=== PATIENT | male | born 1945 | race Caucasian/White ===

== ENCOUNTER → 2016-11-07 | Outpatient (CLI) | payer MEDICARE ==
[2016-11-07 09:26] LABS: BASO % 0.9 % (0.0-1.0); EOS # 0.1 K/mm3 (0.0-0.50); EOS % 2.4 % (0.0-3.0); LARGE UNSTAINED CELL # 0.2 K/mm3 (0.0-0.4); LARGE UNSTAINED CELL % 2.6 % (0.0-4.0); LYMPH # 1.3 K/mm3 (1.5-4.5); LYMPH % 24.1 % (24.0-44.0); MEAN CORPUSCULAR HGB CONC 33.4 g/dl (32.0-36.5); MEAN CORPUSCULAR VOLUME 107.6 fl (80.0-96.0); MONO # 0.4 K/mm3 (0.0-0.8); MONO % 7.6 % (0.0-5.0); NEUTROPHILS # 3.5 K/mm3 (1.8-7.7); NEUTROPHILS % 62.4 % (36.0-66.0); PLATELET COUNT, AUTOMATED 286 k/mm3 (150-450); RED CELL DISTRIBUTION WIDTH 12.4 % (11.5-14.5); WHITE BLOOD COUNT 5.6 K/mm3 (4.0-10.0)
[2016-11-07 09:42] LABS: ALBUMIN 3.4 GM/DL (3.2-5.2); ALBUMIN/GLOBULIN RATIO 1.13 (1.00-1.93); ALKALINE PHOSPHATASE 133 U/L (45-117); ALT/SGPT 29 U/L (12-78); ANION GAP 6 MEQ/L (8-16); AST/SGOT 34 U/L (15-37); BILIRUBIN,TOTAL 0.7 MG/DL (0.2-1.0); BLOOD UREA NITROGEN 15 MG/DL (7-18); CALCIUM LEVEL 8.6 MG/DL (8.8-10.2); CARBON DIOXIDE LEVEL 31 MEQ/L (21-32); CHLORIDE LEVEL 103 MEQ/L (98-107); CHOLESTEROL LEVEL 211 MG/DL (<200); GLOMERULAR FILTRATION RATE > 60.0 (>42); GLUCOSE, FASTING 84 MG/DL (83-110); POTASSIUM SERUM 4.8 MEQ/L (3.5-5.1); SODIUM LEVEL 140 MEQ/L (136-145); TOTAL PROTEIN 6.4 GM/DL (6.4-8.2); TRIGLYCERIDES LEVEL 51 MG/DL (<150)
== END ==
LOC: M WUC 08:05
PROVIDERS: ATTEND Nurse Practitioner Family
DX: Z00.00 Encounter for general adult medical examination without abnormal findings (principal); J44.9 Chronic obstructive pulmonary disease, unspecified; Z13.220 Encounter for screening for lipoid disorders

== ENCOUNTER → 2017-01-03 | Outpatient (CLI) | payer MEDICARE ==
[~2017-01-03] MED LIST: FLUT22IN
--- NOTE | 2017-01-03 11:05 | REP ---
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 All priors were reviewed, the latest of which is dated 02/15/2016. Since all priors, a new asymmetric opacity has developed in the right upper lobe measuring 5.1 x 2.9 cm. In addition, all lung field curvilinear opacities seen today have shown progression since the first plain film examination of the chest on record dated 12/09/2009. There is bilateral pulmonary arterial enlargement which has also increased throughout the years since the first plain film examination of the chest of record and it may in fact have increased slightly even since the latest prior of 02/15/2016. The heart is not enlarged. There is chronic pleural angle blunting. The osseous structures are unchanged. IMPRESSION: 1. New abnormal right upper lobe opacity for which CT examination of the chest is recommended so as it can be compared to the latest prior chest CT which is dated 04/29/2012. I am concerned that the finding represents neoplasm. 2. Increasing chronic changes throughout the years as described above consistent with the patient's diagnosis. 3. Evidence of pulmonary arterial hypertension as described above. Signed by Esau Land DO 01/03/2017 11:07 A
== END ==
LOC: M LRY 09:54
PROVIDERS: ATTEND Internal Medicine Pulmonary Disease
DX: E88.1 Lipodystrophy, not elsewhere classified (principal); J44.9 Chronic obstructive pulmonary disease, unspecified

== ENCOUNTER → 2017-01-04 | Outpatient (REF) | payer MEDICARE | LOC: M LAB REF 14:39 | PROVIDERS: ATTEND Internal Medicine Pulmonary Disease | DX: E88.1 Lipodystrophy, not elsewhere classified (principal); J44.9 Chronic obstructive pulmonary disease, unspecified ==

== ENCOUNTER 2017-01-07 23:03 | Emergency (ER) | payer MEDICARE ==
[~2017-01-07] VITALS: Ht 177.8 cm; Wt 59.1 kg
[2017-01-07] MEDS ORDERED: FLUT22IN (23:20)
[2017-01-07] MEDS ORDERED: dexameTHASONE 20 MG/5 ML VIAL (J1100) IV ONE (23:30)
[2017-01-08 00:49] VITALS: BP 140/88
== END 2017-01-08 00:57 | disposition home or self-care (01) ==
LOC: M ED 23:03
DX: T78.40XA Allergy, unspecified, initial encounter (principal); X58.XXXA Exposure to other specified factors, initial encounter; Y92.9 Unspecified place or not applicable; Y93.9 Activity, unspecified; Y99.9 Unspecified external cause status; J44.9 Chronic obstructive pulmonary disease, unspecified; Z79.51 Long term (current) use of inhaled steroids
CPT/HCPCS: 96374; 99283; J1100

== ENCOUNTER → 2017-01-28 | Outpatient (CLI) | payer MEDICARE ==
--- NOTE | 2017-01-28 11:26 | REP ---
CHEST, TWO VIEWS: HISTORY: Abnormal lung jackson. COMPARISON: 01/03/2017. The lungs are hyperinflated. An increase in interstitial markings is present in the lungs. An ill-defined parenchymal density is present in the right upper lobe that appears unchanged compared to the previous study. The heart is normal in size. The pulmonary vasculature is prominent. The bony structure is intact. IMPRESSION: 1. Chronic interstitial fibrosis. 2. There is an ill-defined parenchymal density in the right upper lobe unchanged compared to the previous study. CT is again recommended for further evaluation. Signed by Christiano Groves MD 01/28/2017 11:30 A
== END ==
LOC: M ADAMS 10:50
PROVIDERS: ATTEND Internal Medicine Pulmonary Disease
DX: R91.8 Other nonspecific abnormal finding of lung field (principal); J84.10 Pulmonary fibrosis, unspecified

== ENCOUNTER → 2017-02-19 | Outpatient (CLI) | payer MEDICARE ==
--- NOTE | 2017-02-19 09:43 | REP ---
Chest CT without contrast: History: Abnormal lung field finding. Comparison chest CT study April 29, 2012. Comparison chest x-ray January 28, 2017 showed an ill-defined parenchymal density in the right upper lobe. CT findings: There is evidence of severe COPD. The lungs are hyperinflated and there are extensive emphysematous changes in the upper and lower lobes bilaterally. There are multiple areas of coarse linear parenchymal fibrosis in the right lung involving the right lower lobe superior segment and right upper lobe. There is some cystic bronchiectasis with retained secretions in the right lower lobe posteriorly. Just below this, there is an irregular soft tissue density measuring 2.1 cm in greatest diameter with some adjacent nodularity. It is not clear whether this is more cystic bronchiectasis with inspissated fluid or a solid lung nodule. There are multiple nodules in the left lower lobe. The largest of these is 1.4 cm in diameter and is associated with some scarring. There are multiple other subcentimeter noncalcified nodules. There is a 1.1 cm nodule in the left lower lobe laterally. There is no evidence of pleural or pericardial effusion. No hilar or mediastinal mass or adenopathy is seen. No adrenal lesion is seen. The visualized upper abdominal structures are unremarkable. No bony abnormality is appreciated. Impression: 1. Severe COPD. 2. Multiple noncalcified pulmonary nodules ranging in size up to 2.1 cm in the right and left lung. These are indeterminate. There are coarse areas of fibrosis particularly on the right and in the superior segment of the left lower lobe. There is cystic bronchiectasis in the right lower lobe. Signed by Kam Flores MD 02/19/2017 12:13 P
== END ==
LOC: M RAD 07:15
PROVIDERS: ATTEND Internal Medicine Pulmonary Disease
DX: R91.8 Other nonspecific abnormal finding of lung field (principal); J44.1 Chronic obstructive pulmonary disease with (acute) exacerbation

== ENCOUNTER → 2017-03-13 | Outpatient (REF) | payer MEDICARE | LOC: M LAB REF 10:12 | PROVIDERS: ATTEND Internal Medicine Pulmonary Disease | DX: E88.01 Alpha-1-antitrypsin deficiency (principal) ==

== ENCOUNTER → 2017-03-30 | Outpatient (REF) | payer MEDICARE | LOC: M LAB REF 13:27 | PROVIDERS: ATTEND Internal Medicine Pulmonary Disease | DX: J47.9 Bronchiectasis, uncomplicated (principal) ==

== ENCOUNTER → 2017-04-19 | Outpatient (CLI) | payer MEDICARE ==
--- NOTE | 2017-04-19 08:53 | REP ---
CT of the chest without IV contrast for follow up of lung nodules: Comparison is 02/19/2017. The patient has the following lung nodules: Image 29, left upper lobe nodule no longer present. This is a confluence of vascular structures. Image 41, superior segment of the left upper lobe, 14 mm, previously 14 mm. This 52, left lower lobe, 1 ml lung nodule with irregular margins, not present previously. Image 57, left lower lobe. The previous nodule in this location is no longer present. Image 58, left lower lobe new 6 ml nodule with poorly defined margins. Image 58 peripherally left lower lobe. The previous nodule in this location is no longer present. Image 66, left lower lobe. The two nodules in this location previously are no longer present. Image 76, left lower lobe 4 ml nodule, unchanged. Image 78, 5 mm nodule, left lower lobe, unchanged. Left lower lobe, new 9 mm nodule, 11 mm previously. Image 88, right lower lobe 7 ml lung nodule, 8 mm previously. Image 92, right lower lobe 12 ml lung nodule, 20 mm previously. Image 99, right lower lobe 8 mm nodule, 20 ml previously. Image 99, left lower lobe 6 ml nodule, unchanged. There are bulla throughout the lung jackson bilaterally compatible with bullous emphysema. There are focal zones of bronchiectasis and scarring in the right lower lobe with inspissated secretions within some of the dilated bronchi. The borderline enlarged precarinal mediastinal node measuring 12 mm. This is unchanged. There is no axillary adenopathy. The study is insensitive for hilar adenopathy in the absence of IV contrast. The ascending thoracic aorta is mildly dilated measuring up to 4.2 cm diameter. The thoracic aorta is otherwise unremarkable. Cardiac size is normal. The visualized upper abdominal contents are unremarkable. Impression: Bullous emphysema. Focal bronchiectasis and fibrosis in the right lower lobe. Focal zones of fibrosis in the left lower lobe. Lung nodules as described. Borderline enlarged precarinal mediastinal node. Signed by Obi Ramires MD 04/19/2017 08:45 A
== END ==
LOC: M RAD 07:24
PROVIDERS: ATTEND Internal Medicine Pulmonary Disease
DX: R91.8 Other nonspecific abnormal finding of lung field (principal); J43.9 Emphysema, unspecified; J47.9 Bronchiectasis, uncomplicated

== ENCOUNTER 2017-08-04 06:42 | Inpatient (IN) | payer MEDICARE ==
[2017-08-04 07:49] LABS: BASO % 0.2 % (0.0-1.0); HEMATOCRIT 53.3 % (42.0-52.0); HEMOGLOBIN 18.2 g/dl (14.0-18.0); IMMATURE GRANULOCYTE % 0.3 % (0-3.0); LYMPH # 0.4 10^3/uL (1.5-4.5); LYMPH % 6.3 % (24.0-44.0); MEAN CORPUSCULAR HEMOGLOBIN 33.2 pg (27.0-33.0); MEAN CORPUSCULAR HGB CONC 34.1 g/dl (32.0-36.5); MEAN CORPUSCULAR VOLUME 97.1 fl (80.0-96.0); MONO # 0.5 10^3/uL (0.0-0.8); MONO % 8.7 % (0.0-5.0); NEUTROPHILS # 5.1 10^3/uL (1.8-7.7); NEUTROPHILS % 84.5 % (36.0-66.0); PLATELET COUNT, AUTOMATED 195 10^3/uL (150-450); RED BLOOD COUNT 5.49 10^6/uL (4.30-6.10); RED CELL DISTRIBUTION WIDTH 12.8 % (11.5-14.5)
[2017-08-04] MEDS: methylPREDNISolone INJ 125 MG/2 ML VIAL (J2930) IV ×2 (08:15→23:34)
[2017-08-04 08:16] LABS: ANION GAP 13 MEQ/L (8-16); BLOOD UREA NITROGEN 20 MG/DL (7-18); CALCIUM LEVEL 8.2 MG/DL (8.8-10.2); CARBON DIOXIDE LEVEL 25 MEQ/L (21-32); CHLORIDE LEVEL 96 MEQ/L (98-107); CREATININE FOR GFR 0.73 MG/DL (0.70-1.30); GLOMERULAR FILTRATION RATE > 60.0 (>42); GLUCOSE, FASTING 95 MG/DL (70-100); POTASSIUM SERUM 4.2 MEQ/L (3.5-5.1); SODIUM LEVEL 134 MEQ/L (136-145)
[2017-08-04 08:19] LABS: ALBUMIN 3.3 GM/DL (3.2-5.2); ALBUMIN/GLOBULIN RATIO 1.03 (1.00-1.93); ALKALINE PHOSPHATASE 113 U/L (45-117); ALT/SGPT 56 U/L (12-78); AST/SGOT 107 U/L (7-37); BILIRUBIN,DIRECT 0.2 MG/DL (0.0-0.2); BILIRUBIN,TOTAL 0.5 MG/DL (0.2-1.0); NT-PRO BNP 250 PG/ML (<125); TOTAL PROTEIN 6.5 GM/DL (6.4-8.2)
[2017-08-04 08:20] LABS: LACTIC ACID SEPSIS PROTOCOL 1.9 MMOL/L (0.4-2.0)
[2017-08-04] MEDS: IPRATROPIUM 0.5MG/ALBUTEROL 2.5MG INH SOL UD 3ML (DUONEB)(J7620) NEB ×3 (08:26→21:32)
[2017-08-04] MEDS: MAGNESIUM OXIDE 400 MG TAB (MAG-OX) PO (09:00)
[2017-08-04] MEDS: PANTOPRAZOLE 40MG TAB (PROTONIX) PO (09:00)
[2017-08-04] MEDS: MULTIVITAMINS/MINERALS THERAP 1 TAB PO (09:00)
[2017-08-04] MEDS: ACETAMINOPHEN TAB 650MG DOSE (2X325MG) PO (09:07)
[2017-08-04 09:55] LABS: CK-MB VALUE MASS 2.5 NG/ML (0.0-3.6); CPK CREATINE PHOSPHOKINASE 607 U/L (39-308); MB/CK RELATIVE INDEX 0.41 (< OR =4); TROPONIN I < 0.02 NG/ML (< 0.10)
[2017-08-04 12:13] LABS: MAGNESIUM LEVEL 1.8 MG/DL (1.8-2.4)
[2017-08-04] MEDS ORDERED: IPRATROPIUM 0.5MG/ALBUTEROL 2.5MG INH SOL UD 3ML (DUONEB)(J7620) As Ordered (12:45)
[2017-08-04] MEDS: VITAMIN B COMPLEX/VIT C CAP PO (14:33)
[2017-08-04] MEDS ORDERED: methylPREDNISolone INJ 125 MG/2 ML VIAL (J2930) IV (16:00)
[2017-08-04] MEDS: LACTOBACILLUS ACIDOPHILUS CAP (BACID) PO (16:57)
[2017-08-04] MEDS: BENZONATATE 100 MG CAP PO ×2 (16:57→23:34)
[2017-08-04] MEDS: FLUTICASONE HFA 220 MCG 12 GM INHALER (FLOVENT) INH (21:32)
[2017-08-05] MEDS: IPRATROPIUM 0.5MG/ALBUTEROL 2.5MG INH SOL UD 3ML (DUONEB)(J7620) NEB ×4 (01:56→21:29)
[2017-08-05 06:01] LABS: HEMOGLOBIN 17.5 g/dl (14.0-18.0); IMMATURE GRANULOCYTE % 0.5 % (0-3.0); LYMPH # 0.4 10^3/uL (1.5-4.5); LYMPH % 10.4 % (24.0-44.0); MEAN CORPUSCULAR HEMOGLOBIN 33.5 pg (27.0-33.0); MEAN CORPUSCULAR VOLUME 95.8 fl (80.0-96.0); MONO # 0.3 10^3/uL (0.0-0.8); MONO % 7.4 % (0.0-5.0); NEUTROPHILS # 3.3 10^3/uL (1.8-7.7); NEUTROPHILS % 81.7 % (36.0-66.0); PLATELET COUNT, AUTOMATED 212 10^3/uL (150-450); RED BLOOD COUNT 5.22 10^6/uL (4.30-6.10); RED CELL DISTRIBUTION WIDTH 12.6 % (11.5-14.5); WHITE BLOOD COUNT 4.1 10^3/uL (4.0-10.0)
[2017-08-05 06:21] LABS: ALBUMIN 2.8 GM/DL (3.2-5.2); ALBUMIN/GLOBULIN RATIO 0.78 (1.00-1.93); ALKALINE PHOSPHATASE 108 U/L (45-117); ALT/SGPT 53 U/L (12-78); ANION GAP 7 MEQ/L (8-16); AST/SGOT 97 U/L (7-37); BILIRUBIN,TOTAL 0.3 MG/DL (0.2-1.0); BLOOD UREA NITROGEN 21 MG/DL (7-18); CALCIUM LEVEL 8.6 MG/DL (8.8-10.2); CARBON DIOXIDE LEVEL 30 MEQ/L (21-32); CHLORIDE LEVEL 99 MEQ/L (98-107); CREATININE FOR GFR 0.66 MG/DL (0.70-1.30); GLOMERULAR FILTRATION RATE > 60.0 (>42); GLUCOSE, FASTING 155 MG/DL (70-100); POTASSIUM SERUM 4.2 MEQ/L (3.5-5.1); SODIUM LEVEL 136 MEQ/L (136-145); TOTAL PROTEIN 6.4 GM/DL (6.4-8.2)
[2017-08-05] MEDS: LACTOBACILLUS ACIDOPHILUS CAP (BACID) PO ×2 (07:01→17:34)
[2017-08-05] MEDS: methylPREDNISolone INJ 125 MG/2 ML VIAL (J2930) IV (07:01)
[2017-08-05] MEDS: BENZONATATE 100 MG CAP PO ×3 (07:01→23:35)
[2017-08-05] MEDS: FLUTICASONE HFA 220 MCG 12 GM INHALER (FLOVENT) INH ×2 (07:43→21:28)
[2017-08-05] MEDS: PANTOPRAZOLE 40MG TAB (PROTONIX) PO (09:35)
[2017-08-05] MEDS: predniSONE 20 MG TAB PO (09:35)
[2017-08-05] MEDS: VITAMIN B COMPLEX/VIT C CAP PO (09:35)
[2017-08-05] MEDS: MULTIVITAMINS/MINERALS THERAP 1 TAB PO (09:36)
[2017-08-05] MEDS: MAGNESIUM OXIDE 400 MG TAB (MAG-OX) PO (09:36)
[2017-08-05] MEDS: ENOXAPARIN 30 MG/0.3 ML SYR (J1650) SC (09:36)
[2017-08-06] MEDS: IPRATROPIUM 0.5MG/ALBUTEROL 2.5MG INH SOL UD 3ML (DUONEB)(J7620) NEB ×4 (02:00→20:00)
[2017-08-06 06:48] LABS: BASO % 0.1 % (0.0-1.0); HEMATOCRIT 50.1 % (42.0-52.0); HEMOGLOBIN 17.4 g/dl (14.0-18.0); IMMATURE GRANULOCYTE % 0.6 % (0-3.0); LYMPH # 0.9 10^3/uL (1.5-4.5); MEAN CORPUSCULAR HEMOGLOBIN 33.7 pg (27.0-33.0); MEAN CORPUSCULAR HGB CONC 34.7 g/dl (32.0-36.5); MEAN CORPUSCULAR VOLUME 96.9 fl (80.0-96.0); MONO # 0.7 10^3/uL (0.0-0.8); MONO % 4.8 % (0.0-5.0); NEUTROPHILS # 13.2 10^3/uL (1.8-7.7); NEUTROPHILS % 88.5 % (36.0-66.0); PLATELET COUNT, AUTOMATED 238 10^3/uL (150-450); RED BLOOD COUNT 5.17 10^6/uL (4.30-6.10); RED CELL DISTRIBUTION WIDTH 12.7 % (11.5-14.5); WHITE BLOOD COUNT 14.9 10^3/uL (4.0-10.0)
[2017-08-06 07:06] LABS: ANION GAP 6 MEQ/L (8-16); BLOOD UREA NITROGEN 25 MG/DL (7-18); CALCIUM LEVEL 8.6 MG/DL (8.8-10.2); CARBON DIOXIDE LEVEL 31 MEQ/L (21-32); CHLORIDE LEVEL 101 MEQ/L (98-107); CREATININE FOR GFR 0.63 MG/DL (0.70-1.30); GLOMERULAR FILTRATION RATE > 60.0 (>42); GLUCOSE, FASTING 104 MG/DL (70-100); POTASSIUM SERUM 4.4 MEQ/L (3.5-5.1); SODIUM LEVEL 138 MEQ/L (136-145)
[2017-08-06] MEDS: predniSONE 20 MG TAB PO ×2 (08:29→08:59)
[2017-08-06] MEDS: BENZONATATE 100 MG CAP PO ×4 (08:30→23:37)
[2017-08-06] MEDS: MAGNESIUM OXIDE 400 MG TAB (MAG-OX) PO ×2 (08:30→08:59)
[2017-08-06] MEDS: PANTOPRAZOLE 40MG TAB (PROTONIX) PO ×2 (08:30→08:59)
[2017-08-06] MEDS: MULTIVITAMINS/MINERALS THERAP 1 TAB PO ×2 (08:30→08:58)
[2017-08-06] MEDS: LACTOBACILLUS ACIDOPHILUS CAP (BACID) PO ×3 (08:30→18:05)
[2017-08-06] MEDS: ENOXAPARIN 30 MG/0.3 ML SYR (J1650) SC (08:31)
[2017-08-06] MEDS: VITAMIN B COMPLEX/VIT C CAP PO ×2 (08:34→08:59)
[2017-08-06] MEDS: FLUTICASONE HFA 220 MCG 12 GM INHALER (FLOVENT) INH ×2 (09:44→21:00)
[2017-08-06] MEDS: SODIUM CHLORIDE HYPERTONIC 3% 15ML NEB SOL INH (11:08)
[2017-08-06] MEDS: SALIVA SUBSTITUTE(MOUTHKOTE) BTL MT (15:21)
[2017-08-07] MEDS: IPRATROPIUM 0.5MG/ALBUTEROL 2.5MG INH SOL UD 3ML (DUONEB)(J7620) NEB ×5 (01:15→20:18)
[2017-08-07] MEDS: LACTOBACILLUS ACIDOPHILUS CAP (BACID) PO ×3 (08:00→18:00)
[2017-08-07] MEDS: BENZONATATE 100 MG CAP PO ×3 (08:00→15:41)
[2017-08-07] MEDS: FLUTICASONE HFA 220 MCG 12 GM INHALER (FLOVENT) INH ×2 (08:27→19:39)
[2017-08-07] MEDS: predniSONE 20 MG TAB PO ×3 (08:50→15:41)
[2017-08-07] MEDS: PANTOPRAZOLE 40MG TAB (PROTONIX) PO ×2 (08:50→09:00)
[2017-08-07] MEDS: MULTIVITAMINS/MINERALS THERAP 1 TAB PO ×2 (08:50→09:00)
[2017-08-07] MEDS: MAGNESIUM OXIDE 400 MG TAB (MAG-OX) PO ×2 (08:50→09:00)
[2017-08-07] MEDS: ENOXAPARIN 30 MG/0.3 ML SYR (J1650) SC ×2 (08:52→09:00)
[2017-08-07] MEDS: VITAMIN B COMPLEX/VIT C CAP PO (09:00)
[2017-08-07] MEDS ORDERED: ACETAMINOPHEN 325 MG TAB As Ordered (09:05)
[2017-08-07] MEDS: ACETAMINOPHEN 325 MG/10.15 ML UDC PO (09:22)
[2017-08-07 09:23] LABS: BASO # 0.1 10^3/uL (0.0-0.2); BASO % 0.5 % (0.0-1.0); HEMATOCRIT 57.4 % (42.0-52.0); IMMATURE GRANULOCYTE % 0.5 % (0-3.0); LYMPH % 8.7 % (24.0-44.0); MEAN CORPUSCULAR HEMOGLOBIN 33.5 pg (27.0-33.0); MEAN CORPUSCULAR HGB CONC 34.7 g/dl (32.0-36.5); MEAN CORPUSCULAR VOLUME 96.6 fl (80.0-96.0); MONO # 0.4 10^3/uL (0.0-0.8); MONO % 3.2 % (0.0-5.0); NEUTROPHILS # 10.4 10^3/uL (1.8-7.7); NEUTROPHILS % 87.1 % (36.0-66.0); PLATELET COUNT, AUTOMATED 244 10^3/uL (150-450); RED BLOOD COUNT 5.94 10^6/uL (4.30-6.10); RED CELL DISTRIBUTION WIDTH 12.8 % (11.5-14.5); WHITE BLOOD COUNT 11.9 10^3/uL (4.0-10.0)
[2017-08-07 09:30] LABS: HEMOGLOBIN 19.9 g/dl (14.0-18.0)
[2017-08-07 09:44] LABS: ALBUMIN/GLOBULIN RATIO 0.75 (1.00-1.93); ALKALINE PHOSPHATASE 115 U/L (45-117); ALT/SGPT 60 U/L (12-78); ANION GAP 5 MEQ/L (8-16); AST/SGOT 85 U/L (7-37); BILIRUBIN,TOTAL 0.4 MG/DL (0.2-1.0); BLOOD UREA NITROGEN 24 MG/DL (7-18); CALCIUM LEVEL 8.8 MG/DL (8.8-10.2); CARBON DIOXIDE LEVEL 34 MEQ/L (21-32); CHLORIDE LEVEL 99 MEQ/L (98-107); CREATININE FOR GFR 0.73 MG/DL (0.70-1.30); GLOMERULAR FILTRATION RATE > 60.0 (>42); GLUCOSE, FASTING 78 MG/DL (70-100); POTASSIUM SERUM 4.5 MEQ/L (3.5-5.1); SODIUM LEVEL 138 MEQ/L (136-145)
[2017-08-07 09:46] LABS: CK-MB VALUE MASS 1.7 NG/ML (0.0-3.6); CPK CREATINE PHOSPHOKINASE 287 U/L (39-308); MB/CK RELATIVE INDEX 0.59 (< OR =4); TROPONIN I < 0.02 NG/ML (< 0.10)
[2017-08-07 11:38] LABS: ABG BASE EXCESS 3.9 (-2.0-2.0); ABG HCO3 28.1 MEQ/L (22.0-26.0); ABG O2 SATURATION 97.8 % (95.0-99.0); ABG PARTIAL PRESSURE CO2 40.5 mmHg (35.0-45.0); ABG PARTIAL PRESSURE O2 98.7 mmHg (75.0-100.0); ABG TOTAL CO2 29.3 MEQ/L (23.0-31.0); ABG pH (ARTERIAL) 7.459 UNITS (7.350-7.450)
[2017-08-07] MEDS ORDERED: ISOVUE-370 76% 100ML VIAL (Q9967) As Ordered (11:40)
[2017-08-07] MEDS: CEFTAROLINE FOSAMIL 600 MG in D5W MINI-BAG PLUS 50 ML IV (13:15)
[2017-08-07 16:10] LABS: ABG BASE EXCESS 1.1 (-2.0-2.0); ABG HCO3 24.7 MEQ/L (22.0-26.0); ABG O2 SATURATION 88.9 % (95.0-99.0); ABG PARTIAL PRESSURE CO2 36.8 mmHg (35.0-45.0); ABG PARTIAL PRESSURE O2 53.9 mmHg (75.0-100.0); ABG STANDARD HCO3 25.1 MEQ/L (22.0-26.0); ABG TOTAL CO2 25.8 MEQ/L (23.0-31.0); ABG pH (ARTERIAL) 7.444 UNITS (7.350-7.450)
[2017-08-07] MEDS: SODIUM CHLORIDE 0.9% 1000 ML IV (16:30)
[2017-08-07 17:04] LABS: CPK CREATINE PHOSPHOKINASE 140 U/L (39-308); TROPONIN I < 0.02 NG/ML (< 0.10)
[2017-08-07 17:05] LABS: CK-MB VALUE MASS 1.4 NG/ML (0.0-3.6); NT-PRO BNP 952 PG/ML (<125)
[2017-08-07 17:28] LABS: LACTIC ACID SEPSIS PROTOCOL 2.1 MMOL/L (0.4-2.0)
[2017-08-07] MEDS: NS 500 ML IV (18:08)
[2017-08-07] MEDS: NS 1,000 ML IV (18:40)
[2017-08-08] MEDS: CEFTAROLINE FOSAMIL 600 MG in D5W MINI-BAG PLUS 50 ML IV ×3 (00:16→23:19)
[2017-08-08] MEDS: IPRATROPIUM 0.5MG/ALBUTEROL 2.5MG INH SOL UD 3ML (DUONEB)(J7620) NEB ×4 (01:19→20:00)
[2017-08-08 05:20] LABS: HEMATOCRIT 55.3 % (42.0-52.0); HEMOGLOBIN 18.8 g/dl (14.0-18.0); MEAN CORPUSCULAR HEMOGLOBIN 33.5 pg (27.0-33.0); MEAN CORPUSCULAR VOLUME 98.6 fl (80.0-96.0); PLATELET COUNT, AUTOMATED 161 10^3/uL (150-450); RED BLOOD COUNT 5.61 10^6/uL (4.30-6.10); WHITE BLOOD COUNT 21.4 10^3/uL (4.0-10.0)
[2017-08-08] MEDS: NS 1,000 ML IV ×2 (06:23→19:47)
[2017-08-08 06:53] LABS: ALBUMIN 2.1 GM/DL (3.2-5.2); ALBUMIN/GLOBULIN RATIO 0.81 (1.00-1.93); ALKALINE PHOSPHATASE 90 U/L (45-117); ALT/SGPT 47 U/L (12-78); ANION GAP 13 MEQ/L (8-16); AST/SGOT 64 U/L (7-37); BILIRUBIN,TOTAL 0.7 MG/DL (0.2-1.0); BLOOD UREA NITROGEN 24 MG/DL (7-18); CALCIUM LEVEL 7.7 MG/DL (8.8-10.2); CARBON DIOXIDE LEVEL 22 MEQ/L (21-32); CHLORIDE LEVEL 105 MEQ/L (98-107); CHOLESTEROL LEVEL 127 MG/DL (< 200); CPK CREATINE PHOSPHOKINASE 107 U/L (39-308); CREATININE FOR GFR 0.63 MG/DL (0.70-1.30); GLOMERULAR FILTRATION RATE > 60.0 (>42); GLUCOSE, FASTING 76 MG/DL (70-100); LDH LACTATE DEHYDROGENASE 416 U/L (87-241); MAGNESIUM LEVEL 1.9 MG/DL (1.8-2.4); PHOSPHORUS LEVEL 2.9 MG/DL (2.5-4.9); POTASSIUM SERUM 4.7 MEQ/L (3.5-5.1); SODIUM LEVEL 140 MEQ/L (136-145); TOTAL PROTEIN 4.7 GM/DL (6.4-8.2); TRIGLYCERIDES LEVEL 90 MG/DL (<150)
[2017-08-08] MEDS: predniSONE 20 MG TAB PO (08:35)
[2017-08-08] MEDS: MULTIVITAMINS/MINERALS THERAP 1 TAB PO (08:39)
[2017-08-08] MEDS: VITAMIN B COMPLEX/VIT C CAP PO (08:40)
[2017-08-08] MEDS: MAGNESIUM OXIDE 400 MG TAB (MAG-OX) PO (08:42)
[2017-08-08] MEDS: BENZONATATE 100 MG CAP PO ×2 (08:42)
[2017-08-08] MEDS: PANTOPRAZOLE 40MG TAB (PROTONIX) PO (08:43)
[2017-08-08] MEDS: LACTOBACILLUS ACIDOPHILUS CAP (BACID) PO ×2 (08:44→17:57)
[2017-08-08] MEDS: ENOXAPARIN 30 MG/0.3 ML SYR (J1650) SC (08:46)
[2017-08-08] MEDS: FLUTICASONE HFA 220 MCG 12 GM INHALER (FLOVENT) INH ×2 (09:00→21:03)
[2017-08-08] MEDS: guaiFENesin ER 600 MG TAB PO ×2 (11:34→21:59)
[2017-08-09] MEDS: IPRATROPIUM 0.5MG/ALBUTEROL 2.5MG INH SOL UD 3ML (DUONEB)(J7620) NEB ×4 (04:02→18:30)
[2017-08-09] MEDS: NS 1,000 ML IV ×2 (05:05→12:45)
[2017-08-09 07:48] LABS: BASO # 0.1 10^3/uL (0.0-0.2); BASO % 0.4 % (0.0-1.0); HEMATOCRIT 39.4 % (42.0-52.0); IMMATURE GRANULOCYTE % 3.8 % (0-3.0); LYMPH # 0.6 10^3/uL (1.5-4.5); LYMPH % 3.4 % (24.0-44.0); MEAN CORPUSCULAR HEMOGLOBIN 33.3 pg (27.0-33.0); MEAN CORPUSCULAR HGB CONC 34.5 g/dl (32.0-36.5); MEAN CORPUSCULAR VOLUME 96.6 fl (80.0-96.0); MONO # 0.5 10^3/uL (0.0-0.8); MONO % 3.2 % (0.0-5.0); NEUTROPHILS # 14.5 10^3/uL (1.8-7.7); NEUTROPHILS % 89.2 % (36.0-66.0); PLATELET COUNT, AUTOMATED 182 10^3/uL (150-450); RED BLOOD COUNT 4.08 10^6/uL (4.30-6.10); RED CELL DISTRIBUTION WIDTH 12.9 % (11.5-14.5); WHITE BLOOD COUNT 16.2 10^3/uL (4.0-10.0)
[2017-08-09 07:52] LABS: HEMOGLOBIN 13.6 g/dl (14.0-18.0); POSITIVE MORPH POS FLAG
[2017-08-09] MEDS: SODIUM CHLORIDE HYPERTONIC 3% 15ML NEB SOL INH (08:07)
[2017-08-09] MEDS: FLUTICASONE HFA 220 MCG 12 GM INHALER (FLOVENT) INH ×2 (08:07→20:19)
[2017-08-09 08:10] LABS: ALBUMIN 1.3 GM/DL (3.2-5.2); ALBUMIN/GLOBULIN RATIO 0.52 (1.00-1.93); ALKALINE PHOSPHATASE 62 U/L (45-117); ALT/SGPT 26 U/L (12-78); ANION GAP 7 MEQ/L (8-16); AST/SGOT 26 U/L (7-37); BILIRUBIN,TOTAL 0.3 MG/DL (0.2-1.0); BLOOD UREA NITROGEN 22 MG/DL (7-18); CALCIUM LEVEL 6.5 MG/DL (8.8-10.2); CARBON DIOXIDE LEVEL 23 MEQ/L (21-32); CHLORIDE LEVEL 113 MEQ/L (98-107); CREATININE FOR GFR 0.27 MG/DL (0.70-1.30); GLUCOSE, FASTING 75 MG/DL (70-100); POTASSIUM SERUM 3.1 MEQ/L (3.5-5.1); SODIUM LEVEL 143 MEQ/L (136-145); TOTAL PROTEIN 3.8 GM/DL (6.4-8.2)
[2017-08-09 08:13] LABS: GLOMERULAR FILTRATION RATE > 60.0 (>42)
[2017-08-09] MEDS: POTASSIUM CHLORIDE 10 MEQ SR TABLET PO (10:32)
[2017-08-09] MEDS: ENOXAPARIN 30 MG/0.3 ML SYR (J1650) SC (10:32)
[2017-08-09] MEDS: MULTIVITAMINS/MINERALS THERAP 1 TAB PO (10:33)
[2017-08-09] MEDS: PANTOPRAZOLE 40MG TAB (PROTONIX) PO (10:33)
[2017-08-09] MEDS: VITAMIN B COMPLEX/VIT C CAP PO (10:33)
[2017-08-09] MEDS: guaiFENesin ER 600 MG TAB PO ×2 (10:33→20:04)
[2017-08-09] MEDS: MAGNESIUM OXIDE 400 MG TAB (MAG-OX) PO (10:33)
[2017-08-09] MEDS: LACTOBACILLUS ACIDOPHILUS CAP (BACID) PO ×2 (10:33→18:55)
[2017-08-09] MEDS: predniSONE 20 MG TAB PO (10:33)
[2017-08-09] MEDS: CEFTAROLINE FOSAMIL 600 MG in D5W MINI-BAG PLUS 50 ML IV (12:45)
[2017-08-09] MEDS: NS 0.45% 1,000 ML IV ×2 (13:29→23:00)
[2017-08-09] MEDS: LEVALBUTEROL 1.25 MG/0.5 ML CONCENTRATE NEB NEB (20:19)
[2017-08-10] MEDS: IPRATROPIUM 0.5MG/ALBUTEROL 2.5MG INH SOL UD 3ML (DUONEB)(J7620) NEB ×4 (01:34→20:00)
[2017-08-10] MEDS: CEFTAROLINE FOSAMIL 600 MG in D5W MINI-BAG PLUS 50 ML IV ×2 (01:59→12:09)
[2017-08-10 04:26] LABS: HEMATOCRIT 43.2 % (42.0-52.0); HEMOGLOBIN 14.9 g/dl (14.0-18.0); MEAN CORPUSCULAR HEMOGLOBIN 33.1 pg (27.0-33.0); MEAN CORPUSCULAR HGB CONC 34.5 g/dl (32.0-36.5); PLATELET COUNT, AUTOMATED 210 10^3/uL (150-450); RED CELL DISTRIBUTION WIDTH 12.8 % (11.5-14.5); WHITE BLOOD COUNT 13.6 10^3/uL (4.0-10.0)
[2017-08-10 04:36] LABS: ADD MANUAL DIFFER YES; DIFF SLIDE NUMBER 54; POSITIVE MORPH POS FLAG
[2017-08-10 04:53] LABS: ALBUMIN 1.7 GM/DL (3.2-5.2); ALBUMIN/GLOBULIN RATIO 0.46 (1.00-1.93); ALKALINE PHOSPHATASE 91 U/L (45-117); ALT/SGPT 46 U/L (12-78); ANION GAP 7 MEQ/L (8-16); AST/SGOT 52 U/L (7-37); BILIRUBIN,TOTAL 0.4 MG/DL (0.2-1.0); BLOOD UREA NITROGEN 26 MG/DL (7-18); CALCIUM LEVEL 8.2 MG/DL (8.8-10.2); CARBON DIOXIDE LEVEL 27 MEQ/L (21-32); CHLORIDE LEVEL 104 MEQ/L (98-107); CREATININE FOR GFR 0.45 MG/DL (0.70-1.30); GLUCOSE, FASTING 108 MG/DL (70-100); POTASSIUM SERUM 4.5 MEQ/L (3.5-5.1); SODIUM LEVEL 138 MEQ/L (136-145); TOTAL PROTEIN 5.4 GM/DL (6.4-8.2)
[2017-08-10 05:02] LABS: GLOMERULAR FILTRATION RATE > 60.0 (>42)
[2017-08-10 05:30] LABS: BANDS 1 % (< 11); LYMPHOCYTES 4 % (16-52); MONOCYTES 2 % (0-8); NEUTROPHILS 93 % (35-75)
[2017-08-10 05:31] LABS: PLATELET ESTIMATE NORMAL (NORMAL); TOXIC GRANULATION 1+
[2017-08-10] MEDS: FLUTICASONE HFA 220 MCG 12 GM INHALER (FLOVENT) INH ×2 (08:12→21:20)
[2017-08-10] MEDS: MAGNESIUM OXIDE 400 MG TAB (MAG-OX) PO (09:07)
[2017-08-10] MEDS: VITAMIN B COMPLEX/VIT C CAP PO (09:08)
[2017-08-10] MEDS: PANTOPRAZOLE 40MG TAB (PROTONIX) PO (09:08)
[2017-08-10] MEDS: LACTOBACILLUS ACIDOPHILUS CAP (BACID) PO ×2 (09:08→17:31)
[2017-08-10] MEDS: guaiFENesin ER 600 MG TAB PO ×2 (09:08→21:26)
[2017-08-10] MEDS: predniSONE 20 MG TAB PO (09:08)
[2017-08-10] MEDS: NS 0.45% 1,000 ML IV ×2 (09:09→17:47)
[2017-08-10] MEDS: MULTIVITAMINS/MINERALS THERAP 1 TAB PO (09:10)
[2017-08-10] MEDS: ENOXAPARIN 30 MG/0.3 ML SYR (J1650) SC (17:31)
[2017-08-10] MEDS: NYSTATIN 500,000 U/5 ML SUSP UDC SS ×2 (18:53→21:25)
[2017-08-10] MEDS: MIRTAZAPINE 7.5MG PER 1/2 TABLET PO (21:25)
[2017-08-11] MEDS: CEFTAROLINE FOSAMIL 600 MG in D5W MINI-BAG PLUS 50 ML IV ×2 (00:12→12:18)
[2017-08-11] MEDS: IPRATROPIUM 0.5MG/ALBUTEROL 2.5MG INH SOL UD 3ML (DUONEB)(J7620) NEB ×4 (01:31→20:00)
[2017-08-11] MEDS: NS 0.45% 1,000 ML IV (04:10)
[2017-08-11 04:43] LABS: BASO # 0.1 10^3/uL (0.0-0.2); BASO % 0.4 % (0.0-1.0); HEMATOCRIT 43.7 % (42.0-52.0); HEMOGLOBIN 15.1 g/dl (14.0-18.0); IMMATURE GRANULOCYTE % 1.3 % (0-3.0); LYMPH # 0.6 10^3/uL (1.5-4.5); LYMPH % 4.5 % (24.0-44.0); MEAN CORPUSCULAR HEMOGLOBIN 32.9 pg (27.0-33.0); MEAN CORPUSCULAR HGB CONC 34.6 g/dl (32.0-36.5); MEAN CORPUSCULAR VOLUME 95.2 fl (80.0-96.0); MONO # 0.9 10^3/uL (0.0-0.8); MONO % 6.2 % (0.0-5.0); NEUTROPHILS # 12.4 10^3/uL (1.8-7.7); NEUTROPHILS % 87.6 % (36.0-66.0); PLATELET COUNT, AUTOMATED 240 10^3/uL (150-450); RED BLOOD COUNT 4.59 10^6/uL (4.30-6.10); RED CELL DISTRIBUTION WIDTH 12.9 % (11.5-14.5); WHITE BLOOD COUNT 14.1 10^3/uL (4.0-10.0)
[2017-08-11 05:12] LABS: ALBUMIN 1.9 GM/DL (3.2-5.2); ALBUMIN/GLOBULIN RATIO 0.51 (1.00-1.93); ALKALINE PHOSPHATASE 94 U/L (45-117); ALT/SGPT 55 U/L (12-78); ANION GAP 6 MEQ/L (8-16); AST/SGOT 48 U/L (7-37); BILIRUBIN,TOTAL 0.4 MG/DL (0.2-1.0); BLOOD UREA NITROGEN 21 MG/DL (7-18); CALCIUM LEVEL 8.3 MG/DL (8.8-10.2); CARBON DIOXIDE LEVEL 28 MEQ/L (21-32); CHLORIDE LEVEL 105 MEQ/L (98-107); CREATININE FOR GFR 0.42 MG/DL (0.70-1.30); GLOMERULAR FILTRATION RATE > 60.0 (>42); GLUCOSE, FASTING 99 MG/DL (70-100); POTASSIUM SERUM 4.3 MEQ/L (3.5-5.1); SODIUM LEVEL 139 MEQ/L (136-145); TOTAL PROTEIN 5.6 GM/DL (6.4-8.2)
[2017-08-11] MEDS: FLUTICASONE HFA 220 MCG 12 GM INHALER (FLOVENT) INH ×2 (07:38→21:36)
[2017-08-11] MEDS: VITAMIN B COMPLEX/VIT C CAP PO (09:00)
[2017-08-11] MEDS: MAGNESIUM OXIDE 400 MG TAB (MAG-OX) PO (09:00)
[2017-08-11] MEDS: MULTIVITAMINS/MINERALS THERAP 1 TAB PO (09:00)
[2017-08-11] MEDS: ENOXAPARIN 30 MG/0.3 ML SYR (J1650) SC (09:49)
[2017-08-11] MEDS: NYSTATIN 500,000 U/5 ML SUSP UDC SS ×4 (09:49→21:26)
[2017-08-11] MEDS: PANTOPRAZOLE 40MG TAB (PROTONIX) PO (09:50)
[2017-08-11] MEDS: LACTOBACILLUS ACIDOPHILUS CAP (BACID) PO ×2 (09:50→17:52)
[2017-08-11] MEDS: guaiFENesin ER 600 MG TAB PO ×2 (09:50→21:25)
[2017-08-11] MEDS: predniSONE 20 MG TAB PO (09:50)
[2017-08-11] MEDS: MIRTAZAPINE 7.5MG PER 1/2 TABLET PO (21:25)
[2017-08-12] MEDS: IPRATROPIUM 0.5MG/ALBUTEROL 2.5MG INH SOL UD 3ML (DUONEB)(J7620) NEB ×4 (00:13→21:42)
[2017-08-12] MEDS: CEFTAROLINE FOSAMIL 600 MG in D5W MINI-BAG PLUS 50 ML IV ×2 (00:51→13:13)
[2017-08-12] MEDS: LEVALBUTEROL 1.25 MG/0.5 ML CONCENTRATE NEB NEB (05:20)
[2017-08-12 06:36] LABS: BASO # 0.1 10^3/uL (0.0-0.2); BASO % 0.4 % (0.0-1.0); HEMATOCRIT 44.6 % (42.0-52.0); HEMOGLOBIN 15.7 g/dl (14.0-18.0); IMMATURE GRANULOCYTE % 2.1 % (0-3.0); LYMPH # 0.8 10^3/uL (1.5-4.5); MEAN CORPUSCULAR HEMOGLOBIN 32.7 pg (27.0-33.0); MEAN CORPUSCULAR HGB CONC 35.2 g/dl (32.0-36.5); MEAN CORPUSCULAR VOLUME 92.9 fl (80.0-96.0); MONO # 1.1 10^3/uL (0.0-0.8); MONO % 6.6 % (0.0-5.0); NEUTROPHILS # 14.1 10^3/uL (1.8-7.7); NEUTROPHILS % 85.9 % (36.0-66.0); PLATELET COUNT, AUTOMATED 247 10^3/uL (150-450); RED CELL DISTRIBUTION WIDTH 12.9 % (11.5-14.5); WHITE BLOOD COUNT 16.5 10^3/uL (4.0-10.0)
[2017-08-12 07:09] LABS: ALBUMIN 1.8 GM/DL (3.2-5.2); ALKALINE PHOSPHATASE 95 U/L (45-117); ALT/SGPT 65 U/L (12-78); ANION GAP 7 MEQ/L (8-16); AST/SGOT 46 U/L (7-37); BILIRUBIN,TOTAL 0.4 MG/DL (0.2-1.0); BLOOD UREA NITROGEN 21 MG/DL (7-18); CALCIUM LEVEL 8.4 MG/DL (8.8-10.2); CARBON DIOXIDE LEVEL 29 MEQ/L (21-32); CHLORIDE LEVEL 106 MEQ/L (98-107); CREATININE FOR GFR 0.47 MG/DL (0.70-1.30); GLOMERULAR FILTRATION RATE > 60.0 (>42); GLUCOSE, FASTING 90 MG/DL (70-100); POTASSIUM SERUM 4.1 MEQ/L (3.5-5.1); SODIUM LEVEL 142 MEQ/L (136-145); TOTAL PROTEIN 5.4 GM/DL (6.4-8.2)
[2017-08-12] MEDS: FLUTICASONE HFA 220 MCG 12 GM INHALER (FLOVENT) INH ×2 (07:54→21:42)
[2017-08-12] MEDS: PANTOPRAZOLE 40MG TAB (PROTONIX) PO (09:45)
[2017-08-12] MEDS: NYSTATIN 500,000 U/5 ML SUSP UDC SS ×4 (09:45→20:18)
[2017-08-12] MEDS: MULTIVITAMINS/MINERALS THERAP 1 TAB PO (09:46)
[2017-08-12] MEDS: guaiFENesin ER 600 MG TAB PO ×2 (09:46→20:18)
[2017-08-12] MEDS: MAGNESIUM OXIDE 400 MG TAB (MAG-OX) PO (09:46)
[2017-08-12] MEDS: VITAMIN B COMPLEX/VIT C CAP PO (09:46)
[2017-08-12] MEDS: predniSONE 20 MG TAB PO (09:46)
[2017-08-12] MEDS: LACTOBACILLUS ACIDOPHILUS CAP (BACID) PO ×2 (09:47→18:01)
[2017-08-12] MEDS: ENOXAPARIN 30 MG/0.3 ML SYR (J1650) SC (09:47)
[2017-08-12] MEDS: MIRTAZAPINE 7.5MG PER 1/2 TABLET PO (20:18)
[2017-08-13] MEDS: CEFTAROLINE FOSAMIL 600 MG in D5W MINI-BAG PLUS 50 ML IV ×2 (00:23→12:31)
[2017-08-13] MEDS: IPRATROPIUM 0.5MG/ALBUTEROL 2.5MG INH SOL UD 3ML (DUONEB)(J7620) NEB ×4 (02:00→22:00)
[2017-08-13 06:57] LABS: BASO # 0.1 10^3/uL (0.0-0.2); BASO % 0.6 % (0.0-1.0); EOS % 0.1 % (0.0-3.0); HEMATOCRIT 44.4 % (42.0-52.0); HEMOGLOBIN 15.4 g/dl (14.0-18.0); IMMATURE GRANULOCYTE % 4.9 % (0-3.0); LYMPH # 0.9 10^3/uL (1.5-4.5); LYMPH % 5.8 % (24.0-44.0); MEAN CORPUSCULAR HEMOGLOBIN 32.8 pg (27.0-33.0); MEAN CORPUSCULAR HGB CONC 34.7 g/dl (32.0-36.5); MEAN CORPUSCULAR VOLUME 94.7 fl (80.0-96.0); MONO % 6.4 % (0.0-5.0); NEUTROPHILS % 82.2 % (36.0-66.0); PLATELET COUNT, AUTOMATED 251 10^3/uL (150-450); RED BLOOD COUNT 4.69 10^6/uL (4.30-6.10); RED CELL DISTRIBUTION WIDTH 13.2 % (11.5-14.5); WHITE BLOOD COUNT 15.9 10^3/uL (4.0-10.0)
[2017-08-13 07:13] LABS: ALBUMIN 1.8 GM/DL (3.2-5.2); ALKALINE PHOSPHATASE 107 U/L (45-117); ALT/SGPT 79 U/L (12-78); ANION GAP 4 MEQ/L (8-16); AST/SGOT 49 U/L (7-37); BILIRUBIN,TOTAL 0.3 MG/DL (0.2-1.0); BLOOD UREA NITROGEN 20 MG/DL (7-18); CALCIUM LEVEL 8.6 MG/DL (8.8-10.2); CARBON DIOXIDE LEVEL 31 MEQ/L (21-32); CHLORIDE LEVEL 106 MEQ/L (98-107); CREATININE FOR GFR 0.45 MG/DL (0.70-1.30); GLOMERULAR FILTRATION RATE > 60.0 (>42); GLUCOSE, FASTING 88 MG/DL (70-100); POTASSIUM SERUM 4.5 MEQ/L (3.5-5.1); SODIUM LEVEL 141 MEQ/L (136-145); TOTAL PROTEIN 5.4 GM/DL (6.4-8.2)
[2017-08-13] MEDS: FLUTICASONE HFA 220 MCG 12 GM INHALER (FLOVENT) INH ×2 (07:39→21:12)
[2017-08-13] MEDS: LACTOBACILLUS ACIDOPHILUS CAP (BACID) PO ×2 (08:15→18:00)
[2017-08-13] MEDS: guaiFENesin ER 600 MG TAB PO ×2 (08:15→21:26)
[2017-08-13] MEDS: PANTOPRAZOLE 40MG TAB (PROTONIX) PO (08:15)
[2017-08-13] MEDS: predniSONE 10 MG TAB PO (08:15)
[2017-08-13] MEDS: MAGNESIUM OXIDE 400 MG TAB (MAG-OX) PO (08:15)
[2017-08-13] MEDS: VITAMIN B COMPLEX/VIT C CAP PO (08:15)
[2017-08-13] MEDS: MULTIVITAMINS/MINERALS THERAP 1 TAB PO (08:15)
[2017-08-13] MEDS: NYSTATIN 500,000 U/5 ML SUSP UDC SS ×4 (08:15→21:26)
[2017-08-13] MEDS: ENOXAPARIN 30 MG/0.3 ML SYR (J1650) SC (08:16)
[2017-08-13] MEDS: FUROSEMIDE 40 MG/4 ML VIAL (J1940) IV (12:32)
[2017-08-13] MEDS: PIPERACILLIN/TAZOBACTAM SOD 3.375 GM in APPROPRIATE DILUENT 1 EA IV ×2 (14:24→21:26)
[2017-08-13] MEDS: MIRTAZAPINE 7.5MG PER 1/2 TABLET PO (21:26)
[2017-08-14] MEDS: CEFTAROLINE FOSAMIL 600 MG in D5W MINI-BAG PLUS 50 ML IV ×3 (00:59→23:46)
[2017-08-14] MEDS: IPRATROPIUM 0.5MG/ALBUTEROL 2.5MG INH SOL UD 3ML (DUONEB)(J7620) NEB ×4 (01:26→20:00)
[2017-08-14] MEDS: PIPERACILLIN/TAZOBACTAM SOD 3.375 GM in APPROPRIATE DILUENT 1 EA IV ×4 (02:16→19:35)
[2017-08-14 07:01] LABS: HEMATOCRIT 42.9 % (42.0-52.0); HEMOGLOBIN 14.7 g/dl (14.0-18.0); MEAN CORPUSCULAR HEMOGLOBIN 32.9 pg (27.0-33.0); MEAN CORPUSCULAR HGB CONC 34.3 g/dl (32.0-36.5); PLATELET COUNT, AUTOMATED 243 10^3/uL (150-450); RED BLOOD COUNT 4.47 10^6/uL (4.30-6.10); RED CELL DISTRIBUTION WIDTH 13.2 % (11.5-14.5); WHITE BLOOD COUNT 13.2 10^3/uL (4.0-10.0)
[2017-08-14 07:10] LABS: ADD MANUAL DIFFER YES; DIFF SLIDE NUMBER 15; POS COUNT POS FLAG; POSITIVE MORPH POS FLAG
[2017-08-14 07:26] LABS: ALBUMIN 1.7 GM/DL (3.2-5.2); ALBUMIN/GLOBULIN RATIO 0.47 (1.00-1.93); ALKALINE PHOSPHATASE 104 U/L (45-117); ALT/SGPT 90 U/L (12-78); ANION GAP 3 MEQ/L (8-16); AST/SGOT 49 U/L (7-37); BILIRUBIN,TOTAL 0.5 MG/DL (0.2-1.0); BLOOD UREA NITROGEN 23 MG/DL (7-18); CALCIUM LEVEL 8.5 MG/DL (8.8-10.2); CARBON DIOXIDE LEVEL 38 MEQ/L (21-32); CHLORIDE LEVEL 101 MEQ/L (98-107); CREATININE FOR GFR 0.56 MG/DL (0.70-1.30); GLOMERULAR FILTRATION RATE > 60.0 (>42); GLUCOSE, FASTING 78 MG/DL (70-100); SODIUM LEVEL 142 MEQ/L (136-145); TOTAL PROTEIN 5.3 GM/DL (6.4-8.2)
[2017-08-14] MEDS: FLUTICASONE HFA 220 MCG 12 GM INHALER (FLOVENT) INH ×2 (07:31→21:50)
[2017-08-14 07:57] LABS: ATYPICAL LYMPH 2 % (0-5); BANDS 1 % (< 11); LYMPHOCYTES 12 % (16-52); METAMYELOCYTES 1 % (0-0); MONOCYTES 6 % (0-8); MYELOCYTES 4 % (0-0); NEUTROPHILS 74 % (35-75); PLATELET ESTIMATE NORMAL (NORMAL)
[2017-08-14] MEDS: MAGNESIUM OXIDE 400 MG TAB (MAG-OX) PO (08:41)
[2017-08-14] MEDS: NYSTATIN 500,000 U/5 ML SUSP UDC SS ×4 (08:41→20:33)
[2017-08-14] MEDS: VITAMIN B COMPLEX/VIT C CAP PO (08:41)
[2017-08-14] MEDS: ENOXAPARIN 30 MG/0.3 ML SYR (J1650) SC (08:41)
[2017-08-14] MEDS: guaiFENesin ER 600 MG TAB PO ×2 (08:41→20:33)
[2017-08-14] MEDS: predniSONE 10 MG TAB PO (08:41)
[2017-08-14] MEDS: PANTOPRAZOLE 40MG TAB (PROTONIX) PO (08:41)
[2017-08-14] MEDS: LACTOBACILLUS ACIDOPHILUS CAP (BACID) PO ×2 (08:41→17:08)
[2017-08-14] MEDS: MULTIVITAMINS/MINERALS THERAP 1 TAB PO (08:41)
[2017-08-14] MEDS: MIRTAZAPINE 7.5MG PER 1/2 TABLET PO (20:33)
[2017-08-15] MEDS: PIPERACILLIN/TAZOBACTAM SOD 3.375 GM in APPROPRIATE DILUENT 1 EA IV ×4 (01:51→21:01)
[2017-08-15] MEDS: IPRATROPIUM 0.5MG/ALBUTEROL 2.5MG INH SOL UD 3ML (DUONEB)(J7620) NEB ×4 (02:05→20:00)
[2017-08-15 07:09] LABS: BASO # 0.1 10^3/uL (0.0-0.2); BASO % 0.5 % (0.0-1.0); EOS # 0.1 10^3/uL (0.0-0.50); EOS % 0.7 % (0.0-3.0); HEMATOCRIT 44.5 % (42.0-52.0); HEMOGLOBIN 15.4 g/dl (14.0-18.0); IMMATURE GRANULOCYTE % 4.6 % (0-3.0); LYMPH % 7.7 % (24.0-44.0); MEAN CORPUSCULAR HEMOGLOBIN 32.8 pg (27.0-33.0); MEAN CORPUSCULAR HGB CONC 34.6 g/dl (32.0-36.5); MEAN CORPUSCULAR VOLUME 94.9 fl (80.0-96.0); MONO # 0.6 10^3/uL (0.0-0.8); MONO % 4.6 % (0.0-5.0); NEUTROPHILS % 81.9 % (36.0-66.0); PLATELET COUNT, AUTOMATED 278 10^3/uL (150-450); RED BLOOD COUNT 4.69 10^6/uL (4.30-6.10); RED CELL DISTRIBUTION WIDTH 13.2 % (11.5-14.5); WHITE BLOOD COUNT 13.4 10^3/uL (4.0-10.0)
[2017-08-15 07:28] LABS: ALBUMIN 1.8 GM/DL (3.2-5.2); ALBUMIN/GLOBULIN RATIO 0.51 (1.00-1.93); ALKALINE PHOSPHATASE 116 U/L (45-117); ALT/SGPT 97 U/L (12-78); ANION GAP 3 MEQ/L (8-16); AST/SGOT 51 U/L (7-37); BILIRUBIN,TOTAL 0.5 MG/DL (0.2-1.0); BLOOD UREA NITROGEN 23 MG/DL (7-18); CALCIUM LEVEL 8.1 MG/DL (8.8-10.2); CARBON DIOXIDE LEVEL 36 MEQ/L (21-32); CHLORIDE LEVEL 104 MEQ/L (98-107); CREATININE FOR GFR 0.46 MG/DL (0.70-1.30); GLOMERULAR FILTRATION RATE > 60.0 (>42); GLUCOSE, FASTING 69 MG/DL (70-100); SODIUM LEVEL 143 MEQ/L (136-145); TOTAL PROTEIN 5.3 GM/DL (6.4-8.2)
[2017-08-15] MEDS: FLUTICASONE HFA 220 MCG 12 GM INHALER (FLOVENT) INH ×2 (07:28→21:00)
[2017-08-15] MEDS: LACTOBACILLUS ACIDOPHILUS CAP (BACID) PO ×2 (08:18→17:27)
[2017-08-15] MEDS: MAGNESIUM OXIDE 400 MG TAB (MAG-OX) PO (08:18)
[2017-08-15] MEDS: NYSTATIN 500,000 U/5 ML SUSP UDC SS ×4 (08:18→21:01)
[2017-08-15] MEDS: VITAMIN B COMPLEX/VIT C CAP PO (08:18)
[2017-08-15] MEDS: MULTIVITAMINS/MINERALS THERAP 1 TAB PO (08:18)
[2017-08-15] MEDS: PANTOPRAZOLE 40MG TAB (PROTONIX) PO (08:18)
[2017-08-15] MEDS: guaiFENesin ER 600 MG TAB PO ×2 (08:18→21:05)
[2017-08-15] MEDS: ENOXAPARIN 30 MG/0.3 ML SYR (J1650) SC (08:19)
[2017-08-15] MEDS: predniSONE 10 MG TAB PO (08:19)
[2017-08-15] MEDS: CEFTAROLINE FOSAMIL 600 MG in D5W MINI-BAG PLUS 50 ML IV (12:20)
[2017-08-15] MEDS: MIRTAZAPINE 7.5MG PER 1/2 TABLET PO (21:05)
[2017-08-16] MEDS: CEFTAROLINE FOSAMIL 600 MG in D5W MINI-BAG PLUS 50 ML IV ×2 (00:04→12:12)
[2017-08-16] MEDS: PIPERACILLIN/TAZOBACTAM SOD 3.375 GM in APPROPRIATE DILUENT 1 EA IV ×4 (01:10→19:39)
[2017-08-16] MEDS: IPRATROPIUM 0.5MG/ALBUTEROL 2.5MG INH SOL UD 3ML (DUONEB)(J7620) NEB ×4 (02:23→19:36)
[2017-08-16 07:03] LABS: BASO # 0.1 10^3/uL (0.0-0.2); BASO % 0.7 % (0.0-1.0); EOS # 0.1 10^3/uL (0.0-0.50); EOS % 0.9 % (0.0-3.0); HEMATOCRIT 45.6 % (42.0-52.0); HEMOGLOBIN 15.4 g/dl (14.0-18.0); IMMATURE GRANULOCYTE % 3.3 % (0-3.0); LYMPH % 7.4 % (24.0-44.0); MEAN CORPUSCULAR HEMOGLOBIN 32.8 pg (27.0-33.0); MEAN CORPUSCULAR HGB CONC 33.8 g/dl (32.0-36.5); MONO # 0.7 10^3/uL (0.0-0.8); MONO % 4.9 % (0.0-5.0); NEUTROPHILS # 11.4 10^3/uL (1.8-7.7); NEUTROPHILS % 82.8 % (36.0-66.0); PLATELET COUNT, AUTOMATED 308 10^3/uL (150-450); RED CELL DISTRIBUTION WIDTH 13.2 % (11.5-14.5); WHITE BLOOD COUNT 13.8 10^3/uL (4.0-10.0)
[2017-08-16 07:20] LABS: ALBUMIN 1.8 GM/DL (3.2-5.2); ALBUMIN/GLOBULIN RATIO 0.49 (1.00-1.93); ALKALINE PHOSPHATASE 124 U/L (45-117); ALT/SGPT 90 U/L (12-78); ANION GAP 3 MEQ/L (8-16); AST/SGOT 50 U/L (7-37); BILIRUBIN,TOTAL 0.5 MG/DL (0.2-1.0); BLOOD UREA NITROGEN 22 MG/DL (7-18); CALCIUM LEVEL 8.2 MG/DL (8.8-10.2); CARBON DIOXIDE LEVEL 36 MEQ/L (21-32); CHLORIDE LEVEL 102 MEQ/L (98-107); CREATININE FOR GFR 0.58 MG/DL (0.70-1.30); GLOMERULAR FILTRATION RATE > 60.0 (>42); GLUCOSE, FASTING 72 MG/DL (70-100); POTASSIUM SERUM 4.2 MEQ/L (3.5-5.1); SODIUM LEVEL 141 MEQ/L (136-145); TOTAL PROTEIN 5.5 GM/DL (6.4-8.2)
[2017-08-16] MEDS: FLUTICASONE HFA 220 MCG 12 GM INHALER (FLOVENT) INH ×2 (08:42→19:35)
[2017-08-16] MEDS: PANTOPRAZOLE 40MG TAB (PROTONIX) PO (08:58)
[2017-08-16] MEDS: guaiFENesin ER 600 MG TAB PO ×2 (08:58→20:33)
[2017-08-16] MEDS: MULTIVITAMINS/MINERALS THERAP 1 TAB PO (08:58)
[2017-08-16] MEDS: NYSTATIN 500,000 U/5 ML SUSP UDC SS ×4 (08:59→20:32)
[2017-08-16] MEDS: LACTOBACILLUS ACIDOPHILUS CAP (BACID) PO ×2 (08:59→17:41)
[2017-08-16] MEDS: MAGNESIUM OXIDE 400 MG TAB (MAG-OX) PO (08:59)
[2017-08-16] MEDS: predniSONE 10 MG TAB PO (08:59)
[2017-08-16] MEDS: ENOXAPARIN 30 MG/0.3 ML SYR (J1650) SC (09:48)
[2017-08-16] MEDS: VITAMIN B COMPLEX/VIT C CAP PO (12:12)
[2017-08-16] MEDS: MIRTAZAPINE 7.5MG PER 1/2 TABLET PO (20:33)
[2017-08-17] MEDS: CEFTAROLINE FOSAMIL 600 MG in D5W MINI-BAG PLUS 50 ML IV ×2 (00:23→12:22)
[2017-08-17] MEDS: PIPERACILLIN/TAZOBACTAM SOD 3.375 GM in APPROPRIATE DILUENT 1 EA IV ×4 (01:22→20:33)
[2017-08-17] MEDS: IPRATROPIUM 0.5MG/ALBUTEROL 2.5MG INH SOL UD 3ML (DUONEB)(J7620) NEB ×4 (02:16→20:00)
[2017-08-17 06:24] LABS: RED BLOOD COUNT 4.56 10^6/uL (4.30-6.10); WHITE BLOOD COUNT 13.4 10^3/uL (4.0-10.0)
[2017-08-17 06:25] LABS: HEMATOCRIT 44.1 % (42.0-52.0); MEAN CORPUSCULAR HEMOGLOBIN 32.9 pg (27.0-33.0); MEAN CORPUSCULAR VOLUME 96.7 fl (80.0-96.0); PLATELET COUNT, AUTOMATED 314 10^3/uL (150-450); RED CELL DISTRIBUTION WIDTH 13.2 % (11.5-14.5)
[2017-08-17 06:46] LABS: ALKALINE PHOSPHATASE 121 U/L (45-117); ALT/SGPT 91 U/L (12-78); ANION GAP 4 MEQ/L (8-16); AST/SGOT 48 U/L (7-37); BLOOD UREA NITROGEN 22 MG/DL (7-18); CALCIUM LEVEL 8.3 MG/DL (8.8-10.2); CARBON DIOXIDE LEVEL 36 MEQ/L (21-32); CHLORIDE LEVEL 103 MEQ/L (98-107); CREATININE FOR GFR 0.58 MG/DL (0.70-1.30); GLOMERULAR FILTRATION RATE > 60.0 (>42); GLUCOSE, FASTING 76 MG/DL (70-100); POTASSIUM SERUM 4.5 MEQ/L (3.5-5.1); SODIUM LEVEL 143 MEQ/L (136-145)
[2017-08-17 06:47] LABS: ALBUMIN 1.9 GM/DL (3.2-5.2); ALBUMIN/GLOBULIN RATIO 0.63 (1.00-1.93); BILIRUBIN,TOTAL 0.6 MG/DL (0.2-1.0); TOTAL PROTEIN 4.9 GM/DL (6.4-8.2)
[2017-08-17] MEDS: FLUTICASONE HFA 220 MCG 12 GM INHALER (FLOVENT) INH ×2 (07:26→20:05)
[2017-08-17] MEDS: guaiFENesin ER 600 MG TAB PO ×2 (08:41→20:33)
[2017-08-17] MEDS: NYSTATIN 500,000 U/5 ML SUSP UDC SS ×4 (08:41→20:33)
[2017-08-17] MEDS: ENOXAPARIN 30 MG/0.3 ML SYR (J1650) SC (08:41)
[2017-08-17] MEDS: PANTOPRAZOLE 40MG TAB (PROTONIX) PO (08:42)
[2017-08-17] MEDS: VITAMIN B COMPLEX/VIT C CAP PO (08:42)
[2017-08-17] MEDS: MAGNESIUM OXIDE 400 MG TAB (MAG-OX) PO (08:42)
[2017-08-17] MEDS: LACTOBACILLUS ACIDOPHILUS CAP (BACID) PO ×2 (08:42→17:01)
[2017-08-17] MEDS: MULTIVITAMINS/MINERALS THERAP 1 TAB PO (08:42)
[2017-08-17] MEDS: predniSONE 10 MG TAB PO (08:42)
[2017-08-17] MEDS: MIRTAZAPINE 7.5MG PER 1/2 TABLET PO (20:33)
[2017-08-18] MEDS: PIPERACILLIN/TAZOBACTAM SOD 3.375 GM in APPROPRIATE DILUENT 1 EA IV ×4 (01:47→20:57)
[2017-08-18] MEDS: IPRATROPIUM 0.5MG/ALBUTEROL 2.5MG INH SOL UD 3ML (DUONEB)(J7620) NEB ×3 (02:40→13:20)
[2017-08-18] MEDS: FLUTICASONE HFA 220 MCG 12 GM INHALER (FLOVENT) INH ×2 (08:01→21:00)
[2017-08-18] MEDS: NYSTATIN 500,000 U/5 ML SUSP UDC SS ×4 (08:56→20:57)
[2017-08-18] MEDS: VITAMIN B COMPLEX/VIT C CAP PO (08:57)
[2017-08-18] MEDS: PANTOPRAZOLE 40MG TAB (PROTONIX) PO (08:57)
[2017-08-18] MEDS: MAGNESIUM OXIDE 400 MG TAB (MAG-OX) PO (08:57)
[2017-08-18] MEDS: guaiFENesin ER 600 MG TAB PO ×2 (08:57→20:57)
[2017-08-18] MEDS: predniSONE 10 MG TAB PO (08:57)
[2017-08-18] MEDS: LACTOBACILLUS ACIDOPHILUS CAP (BACID) PO ×2 (08:57→17:31)
[2017-08-18] MEDS: MULTIVITAMINS/MINERALS THERAP 1 TAB PO (08:57)
[2017-08-18] MEDS: ENOXAPARIN 30 MG/0.3 ML SYR (J1650) SC (08:58)
[2017-08-18] MEDS: MIRTAZAPINE 7.5MG PER 1/2 TABLET PO (20:57)
[2017-08-18] MEDS: ACETAMINOPHEN TAB 650MG DOSE (2X325MG) PO (20:58)
[2017-08-19] MEDS: IPRATROPIUM 0.5MG/ALBUTEROL 2.5MG INH SOL UD 3ML (DUONEB)(J7620) NEB ×5 (02:36→20:00)
[2017-08-19] MEDS: PIPERACILLIN/TAZOBACTAM SOD 3.375 GM in APPROPRIATE DILUENT 1 EA IV ×3 (02:40→13:27)
[2017-08-19] MEDS: FLUTICASONE HFA 220 MCG 12 GM INHALER (FLOVENT) INH ×2 (08:05→20:34)
[2017-08-19] MEDS: VITAMIN B COMPLEX/VIT C CAP PO (08:46)
[2017-08-19] MEDS: predniSONE 10 MG TAB PO (08:46)
[2017-08-19] MEDS: PANTOPRAZOLE 40MG TAB (PROTONIX) PO (08:47)
[2017-08-19] MEDS: MAGNESIUM OXIDE 400 MG TAB (MAG-OX) PO (08:47)
[2017-08-19] MEDS: NYSTATIN 500,000 U/5 ML SUSP UDC SS ×4 (08:47→20:39)
[2017-08-19] MEDS: guaiFENesin ER 600 MG TAB PO ×2 (08:47→20:39)
[2017-08-19] MEDS: LACTOBACILLUS ACIDOPHILUS CAP (BACID) PO ×2 (08:47→17:08)
[2017-08-19] MEDS: MULTIVITAMINS/MINERALS THERAP 1 TAB PO (08:47)
[2017-08-19] MEDS: ENOXAPARIN 30 MG/0.3 ML SYR (J1650) SC (17:09)
[2017-08-19] MEDS: ACETAMINOPHEN TAB 650MG DOSE (2X325MG) PO (20:39)
[2017-08-19] MEDS: MIRTAZAPINE 7.5MG PER 1/2 TABLET PO (20:39)
[2017-08-20] MEDS: IPRATROPIUM 0.5MG/ALBUTEROL 2.5MG INH SOL UD 3ML (DUONEB)(J7620) NEB ×2 (02:26→08:26)
[2017-08-20] MEDS: predniSONE 10 MG TAB PO (08:16)
[2017-08-20] MEDS: PANTOPRAZOLE 40MG TAB (PROTONIX) PO (08:16)
[2017-08-20] MEDS: guaiFENesin ER 600 MG TAB PO (08:16)
[2017-08-20] MEDS: LACTOBACILLUS ACIDOPHILUS CAP (BACID) PO (08:16)
[2017-08-20] MEDS: VITAMIN B COMPLEX/VIT C CAP PO (08:16)
[2017-08-20] MEDS: MAGNESIUM OXIDE 400 MG TAB (MAG-OX) PO (08:16)
[2017-08-20] MEDS: MULTIVITAMINS/MINERALS THERAP 1 TAB PO (08:16)
[2017-08-20] MEDS: NYSTATIN 500,000 U/5 ML SUSP UDC SS (08:16)
[2017-08-20] MEDS: ENOXAPARIN 30 MG/0.3 ML SYR (J1650) SC (08:17)
[2017-08-20] MEDS: FLUTICASONE HFA 220 MCG 12 GM INHALER (FLOVENT) INH (08:26)
== END 2017-08-20 09:15 | disposition home health service (06) | DRG 177 ==
LOC: M ICU 08-07 09:45 → M MS4PR 08-11 21:42 → M ED 06:42 → M ED INP 10:51 → M MSPAV 12:33
DX: J10.08 Influenza due to other identified influenza virus with other specified pneumonia (principal); J15.6 Pneumonia due to other Gram-negative bacteria; J96.01 Acute respiratory failure with hypoxia; E46 Unspecified protein-calorie malnutrition; B37.0 Candidal stomatitis; R64 Cachexia; J44.1 Chronic obstructive pulmonary disease with (acute) exacerbation; E88.01 Alpha-1-antitrypsin deficiency; L89.152 Pressure ulcer of sacral region, stage 2; E87.6 Hypokalemia; Z66 Do not resuscitate; Z79.899 Other long term (current) drug therapy

== ENCOUNTER 2017-08-30 08:11 | Observation (INO) | payer MEDICARE ==
[2017-08-30] MEDS: LORazepam 2 MG/ML VIAL (J2060) IV (08:40)
[2017-08-30 08:57] LABS: BEDSIDE GLUCOSE 105 MG/DL (83-110)
[2017-08-30 09:06] LABS: ABG BASE EXCESS -0.8 (-2.0-2.0); ABG PARTIAL PRESSURE CO2 35.6 mmHg (35.0-45.0); ABG PARTIAL PRESSURE O2 140.5 mmHg (75.0-100.0); ABG STANDARD HCO3 23.9 MEQ/L (22.0-26.0); ABG TOTAL CO2 24.1 MEQ/L (23.0-31.0); ABG pH (ARTERIAL) 7.428 UNITS (7.350-7.450)
[2017-08-30 09:30] LABS: HEMATOCRIT 42.2 % (42.0-52.0); HEMOGLOBIN 14.7 g/dl (14.0-18.0); RED BLOOD COUNT 4.35 10^6/uL (4.30-6.10); WHITE BLOOD COUNT 11.4 10^3/uL (4.0-10.0)
[2017-08-30 09:31] LABS: BASO # 0.1 10^3/uL (0.0-0.2); BASO % 0.5 % (0.0-1.0); EOS # 0.2 10^3/uL (0.0-0.50); EOS % 2.1 % (0.0-3.0); IMMATURE GRANULOCYTE % 0.7 % (0-3.0); LYMPH # 1.4 10^3/uL (1.5-4.5); LYMPH % 11.9 % (24.0-44.0); MEAN CORPUSCULAR HEMOGLOBIN 33.8 pg (27.0-33.0); MEAN CORPUSCULAR HGB CONC 34.8 g/dl (32.0-36.5); MONO # 1.1 10^3/uL (0.0-0.8); MONO % 9.7 % (0.0-5.0); NEUTROPHILS # 8.5 10^3/uL (1.8-7.7); NEUTROPHILS % 75.1 % (36.0-66.0); PLATELET COUNT, AUTOMATED 392 10^3/uL (150-450); RED CELL DISTRIBUTION WIDTH 12.7 % (11.5-14.5)
[2017-08-30 09:37] LABS: LACTIC ACID SEPSIS PROTOCOL 1.7 MMOL/L (0.4-2.0)
[2017-08-30 09:39] LABS: ANION GAP 7 MEQ/L (8-16); BLOOD UREA NITROGEN 19 MG/DL (7-18); CALCIUM LEVEL 8.9 MG/DL (8.8-10.2); CARBON DIOXIDE LEVEL 29 MEQ/L (21-32); CHLORIDE LEVEL 99 MEQ/L (98-107); CK-MB VALUE MASS 3.8 NG/ML (0.0-3.6); CPK CREATINE PHOSPHOKINASE 66 U/L (39-308); CREATININE FOR GFR 0.57 MG/DL (0.70-1.30); GLOMERULAR FILTRATION RATE > 60.0 (>42); GLUCOSE, FASTING 107 MG/DL (70-100); MB/CK RELATIVE INDEX 5.75 (< OR =4); POTASSIUM SERUM 3.8 MEQ/L (3.5-5.1); SODIUM LEVEL 135 MEQ/L (136-145); TROPONIN I < 0.02 NG/ML (< 0.10)
[2017-08-30 09:40] LABS: THYROID STIMULATING HORMONE 0.854 uIU/ML (0.358-3.740)
[2017-08-30 11:32] LABS: KETONE, URINE AUTO RFX TRACE mg/dL (NEGATIVE); MUCUS, URINE RFX SMALL (NEGATIVE); NITRITE, URINE AUTO RFX NEGATIVE (NEGATIVE); RBC, URINE AUTO RFX 32 /HPF (0-3); SPECIFIC GRAVITY UR AUTO RFX 1.019 (1.002-1.035); SQUAM EPITHELIAL CELL UR AURFX 0 /HPF (0-6)
[2017-08-30 11:33] LABS: LEUKOCYTE ESTERASE UR AUTO RFX 3+ (NEGATIVE); WBC, URINE AUTO RFX 159 /HPF (0-3)
[2017-08-30 11:54] LABS: ALBUMIN 2.7 GM/DL (3.2-5.2); ALBUMIN/GLOBULIN RATIO 0.59 (1.00-1.93); ALKALINE PHOSPHATASE 171 U/L (45-117); ALT/SGPT 108 U/L (12-78); AST/SGOT 59 U/L (7-37); BILIRUBIN,DIRECT 0.2 MG/DL (0.0-0.2); BILIRUBIN,TOTAL 0.8 MG/DL (0.2-1.0); TOTAL PROTEIN 7.3 GM/DL (6.4-8.2)
[2017-08-30] MEDS: NS 1,000 ML IV (14:16)
[2017-08-30] MEDS: CEFTRIAXONE SOD 1 GM in APPROPRIATE DILUENT 1 EA IV (14:16)
[2017-08-30 14:26] LABS: CK-MB VALUE MASS 2.9 NG/ML (0.0-3.6); CPK CREATINE PHOSPHOKINASE 56 U/L (39-308); MB/CK RELATIVE INDEX 5.17 (< OR =4); TROPONIN I < 0.02 NG/ML (< 0.10)
[2017-08-30] MEDS: FLUTICASONE HFA 220 MCG 12 GM INHALER (FLOVENT) INH (19:45)
[2017-08-30] MEDS: ALBUTEROL SULFATE 2.5 MG/0.5 ML INH NEB SOLN NEB (22:14)
[2017-08-31] MEDS: SALIVA SUBSTITUTE(MOUTHKOTE) BTL MT ×2 (01:49→21:00)
[2017-08-31] MEDS: CEPACOL LOZENGE PO (04:01)
[2017-08-31 04:12] LABS: HEMATOCRIT 36.4 % (42.0-52.0); MEAN CORPUSCULAR HEMOGLOBIN 32.8 pg (27.0-33.0); MEAN CORPUSCULAR HGB CONC 34.1 g/dl (32.0-36.5); MEAN CORPUSCULAR VOLUME 96.3 fl (80.0-96.0); PLATELET COUNT, AUTOMATED 317 10^3/uL (150-450); RED BLOOD COUNT 3.78 10^6/uL (4.30-6.10); RED CELL DISTRIBUTION WIDTH 12.6 % (11.5-14.5); WHITE BLOOD COUNT 9.1 10^3/uL (4.0-10.0)
[2017-08-31 04:21] LABS: HEMOGLOBIN 12.4 g/dl (14.0-18.0)
[2017-08-31 04:35] LABS: ALBUMIN 2.1 GM/DL (3.2-5.2); ALBUMIN/GLOBULIN RATIO 0.57 (1.00-1.93); ALKALINE PHOSPHATASE 145 U/L (45-117); ALT/SGPT 78 U/L (12-78); ANION GAP 5 MEQ/L (8-16); AST/SGOT 47 U/L (7-37); BILIRUBIN,TOTAL 0.6 MG/DL (0.2-1.0); BLOOD UREA NITROGEN 15 MG/DL (7-18); CALCIUM LEVEL 8.1 MG/DL (8.8-10.2); CARBON DIOXIDE LEVEL 30 MEQ/L (21-32); CHLORIDE LEVEL 103 MEQ/L (98-107); CREATININE FOR GFR 0.38 MG/DL (0.70-1.30); GLOMERULAR FILTRATION RATE > 60.0 (>42); GLUCOSE, FASTING 83 MG/DL (70-100); SODIUM LEVEL 138 MEQ/L (136-145); TOTAL PROTEIN 5.8 GM/DL (6.4-8.2)
[2017-08-31] MEDS: FLUTICASONE HFA 220 MCG 12 GM INHALER (FLOVENT) INH ×2 (08:13→19:09)
[2017-08-31] MEDS: BENZONATATE 100 MG CAP PO (21:00)
[2017-09-01] MEDS: BENZONATATE 100 MG CAP PO ×2 (05:30→13:25)
[2017-09-01 06:08] LABS: HEMATOCRIT 38.6 % (42.0-52.0); MEAN CORPUSCULAR HEMOGLOBIN 32.9 pg (27.0-33.0); MEAN CORPUSCULAR HGB CONC 33.7 g/dl (32.0-36.5); MEAN CORPUSCULAR VOLUME 97.7 fl (80.0-96.0); PLATELET COUNT, AUTOMATED 347 10^3/uL (150-450); RED BLOOD COUNT 3.95 10^6/uL (4.30-6.10); RED CELL DISTRIBUTION WIDTH 12.5 % (11.5-14.5)
[2017-09-01 06:30] LABS: ALBUMIN 2.2 GM/DL (3.2-5.2); ALBUMIN/GLOBULIN RATIO 0.58 (1.00-1.93); ALKALINE PHOSPHATASE 153 U/L (45-117); ALT/SGPT 79 U/L (12-78); ANION GAP 4 MEQ/L (8-16); AST/SGOT 47 U/L (7-37); BILIRUBIN,TOTAL 0.8 MG/DL (0.2-1.0); BLOOD UREA NITROGEN 14 MG/DL (7-18); CALCIUM LEVEL 8.2 MG/DL (8.8-10.2); CARBON DIOXIDE LEVEL 33 MEQ/L (21-32); CHLORIDE LEVEL 101 MEQ/L (98-107); CREATININE FOR GFR 0.43 MG/DL (0.70-1.30); GLOMERULAR FILTRATION RATE > 60.0 (>42); GLUCOSE, FASTING 89 MG/DL (70-100); POTASSIUM SERUM 3.7 MEQ/L (3.5-5.1); SODIUM LEVEL 138 MEQ/L (136-145)
[2017-09-01] MEDS: FLUTICASONE HFA 220 MCG 12 GM INHALER (FLOVENT) INH (07:36)
[2017-09-01] MEDS: SALIVA SUBSTITUTE(MOUTHKOTE) BTL MT (11:48)
== END 2017-09-01 15:47 | disposition home or self-care (01) ==
LOC: M MSPAV 08-31 22:15 → M ED 08:11 → M ED INP 13:29 → M PCU 17:46
PROVIDERS: Family Medicine
DX: G93.40 Encephalopathy, unspecified (principal); E88.01 Alpha-1-antitrypsin deficiency; J96.11 Chronic respiratory failure with hypoxia; Z79.899 Other long term (current) drug therapy; Z99.81 Dependence on supplemental oxygen
CPT/HCPCS: J2060

== ENCOUNTER → 2017-10-23 | Outpatient (CLI) | payer MEDICARE | LOC: M RAD 13:02 | DX: M79.605 Pain in left leg (principal) | CPT/HCPCS: 93971 ==

== ENCOUNTER → 2017-11-15 | Outpatient (CLI) | payer MEDICARE ==
[2017-11-15 11:17] LABS: C REACTIVE PROTEIN QUANTITATIV 8.25 MG/DL (0.00-0.30); CHOLESTEROL LEVEL 241 MG/DL (<200); CHOLESTEROL RISK RATIO 2.939 (<5); HDL CHOLESTEROL 82 MG/DL (>40); NON-HDL-C 159 MG/DL; TRIGLYCERIDES LEVEL 85 MG/DL (<150)
[2017-11-15 13:37] LABS: HEMATOCRIT 46.7 % (42.0-52.0); HEMOGLOBIN 16.3 g/dl (13.5-17.5); MEAN CORPUSCULAR HEMOGLOBIN 35.6 pg (27.0-33.0); MEAN CORPUSCULAR HGB CONC 34.9 g/dl (32.0-36.5); PLATELET COUNT, AUTOMATED 272 10^3/uL (150-450); RED BLOOD COUNT 4.58 10^6/uL (4.30-6.10); RED CELL DISTRIBUTION WIDTH 14.3 % (11.5-14.5); WHITE BLOOD COUNT 8.2 10^3/uL (4.0-10.0)
[2017-11-17 00:06] LABS: HOMOCYST(E)INE SERUM 9.7 umol/L (0.0-15.0)
== END ==
LOC: M LAB 08:31
DX: Z13.220 Encounter for screening for lipoid disorders (principal); Z13.6 Encounter for screening for cardiovascular disorders; J44.9 Chronic obstructive pulmonary disease, unspecified; E44.1 Mild protein-calorie malnutrition
CPT/HCPCS: 80061

== ENCOUNTER 2017-11-27 14:23 | Outpatient (RCR) | payer MEDICARE | END 2017-12-21 | LOC: M CR 14:23 → M PR 12-16 11:01 | DX: Z51.89 Encounter for other specified aftercare (principal); J44.9 Chronic obstructive pulmonary disease, unspecified | CPT/HCPCS: G0424 ==

== ENCOUNTER 2017-12-26 10:27 | Outpatient (RCR) | payer MEDICARE | END 2018-01-21 | LOC: M PR 10:27 | DX: Z51.89 Encounter for other specified aftercare (principal); J44.9 Chronic obstructive pulmonary disease, unspecified; E88.01 Alpha-1-antitrypsin deficiency | CPT/HCPCS: G0424 ==

== ENCOUNTER → 2018-01-21 | Outpatient (REF) | payer MEDICARE | LOC: M LAB REF 10:54 | DX: J44.9 Chronic obstructive pulmonary disease, unspecified (principal) | CPT/HCPCS: 87205 ==

== ENCOUNTER → 2018-01-22 | Outpatient (REF) | payer MEDICARE | LOC: M SFHCPLAZ 15:08 | DX: J43.8 Other emphysema (principal) ==

== ENCOUNTER → 2018-01-23 | Outpatient (REF) | payer MEDICARE | LOC: M LAB REF 11:36 | DX: J44.9 Chronic obstructive pulmonary disease, unspecified (principal) ==

== ENCOUNTER → 2018-01-23 | Outpatient (CLI) | payer MEDICARE ==
[2018-01-23 11:47] LABS: ALBUMIN 3.5 GM/DL (3.2-5.2); ANION GAP 5 MEQ/L (8-16); BLOOD UREA NITROGEN 18 MG/DL (7-18); CALCIUM LEVEL 9.1 MG/DL (8.8-10.2); CARBON DIOXIDE LEVEL 35 MEQ/L (21-32); CHLORIDE LEVEL 103 MEQ/L (98-107); GLOMERULAR FILTRATION RATE > 60.0 (>42); GLUCOSE, FASTING 84 MG/DL (70-100); PHOSPHORUS LEVEL 3.5 MG/DL (2.5-4.9); POTASSIUM SERUM 4.3 MEQ/L (3.5-5.1); SODIUM LEVEL 143 MEQ/L (136-145)
== END ==
LOC: M LAB 10:51
DX: J43.8 Other emphysema (principal)
CPT/HCPCS: 80069

== ENCOUNTER → 2018-01-24 | Outpatient (CLI) | payer MEDICARE ==
[~2018-01-24] MED LIST changes: -FLUT22IN; +ISOVUE-370 76% 100ML VIAL (Q9967) As Ordered
== END ==
LOC: M RAD 08:34
DX: R04.2 Hemoptysis (principal)
CPT/HCPCS: Q9967

== ENCOUNTER 2018-03-12 18:38 | Inpatient (IN) | payer MEDICARE ==
[2018-03-12 19:09] LABS: BASO % 0.3 % (0.0-1.0); EOS # 0.1 10^3/uL (0.0-0.50); EOS % 0.7 % (0.0-3.0); HEMATOCRIT 47.6 % (42.0-52.0); HEMOGLOBIN 16.1 g/dl (13.5-17.5); IMMATURE GRANULOCYTE % 0.5 % (0-3.0); LYMPH # 1.3 10^3/uL (1.5-4.5); LYMPH % 9.4 % (24.0-44.0); MEAN CORPUSCULAR HEMOGLOBIN 34.5 pg (27.0-33.0); MEAN CORPUSCULAR HGB CONC 33.8 g/dl (32.0-36.5); MEAN CORPUSCULAR VOLUME 102.1 fl (80.0-96.0); MONO # 1.4 10^3/uL (0.0-0.8); NEUTROPHILS # 11.4 10^3/uL (1.8-7.7); NEUTROPHILS % 79.1 % (36.0-66.0); PLATELET COUNT, AUTOMATED 294 10^3/uL (150-450); RED BLOOD COUNT 4.66 10^6/uL (4.30-6.10); RED CELL DISTRIBUTION WIDTH 13.3 % (11.5-14.5); WHITE BLOOD COUNT 14.3 10^3/uL (4.0-10.0)
[2018-03-12 19:27] LABS: INR 0.88; PARTIAL THROMBOPLASTIN TIME 29.7 SECONDS (25.4-37.6)
[2018-03-12 19:42] LABS: ALBUMIN 3.4 GM/DL (3.2-5.2); ALBUMIN/GLOBULIN RATIO 1.06 (1.00-1.93); ALKALINE PHOSPHATASE 138 U/L (45-117); ALT/SGPT 29 U/L (12-78); ANION GAP 9 MEQ/L (8-16); AST/SGOT 32 U/L (7-37); BILIRUBIN,DIRECT 0.4 MG/DL (0.0-0.2); BILIRUBIN,TOTAL 1.1 MG/DL (0.2-1.0); BLOOD UREA NITROGEN 14 MG/DL (7-18); CALCIUM LEVEL 8.8 MG/DL (8.8-10.2); CARBON DIOXIDE LEVEL 28 MEQ/L (21-32); CHLORIDE LEVEL 99 MEQ/L (98-107); CPK CREATINE PHOSPHOKINASE 61 U/L (39-308); CREATININE FOR GFR 0.68 MG/DL (0.70-1.30); FREE T4 1.16 NG/DL (0.76-1.46); GLOMERULAR FILTRATION RATE > 60.0 (>42); GLUCOSE, FASTING 109 MG/DL (70-100); LIPASE 75 U/L (73-393); MB/CK RELATIVE INDEX 3.28 (< OR =4); NT-PRO BNP 283 PG/ML (<125); POTASSIUM SERUM 4.3 MEQ/L (3.5-5.1); SODIUM LEVEL 136 MEQ/L (136-145); THYROID STIMULATING HORMONE 0.975 uIU/ML (0.358-3.740); TOTAL PROTEIN 6.6 GM/DL (6.4-8.2); TROPONIN I < 0.02 NG/ML (< 0.10)
[2018-03-12] MEDS: ASPIRIN 81 MG CHEW TABLET PO (19:57)
[2018-03-12] MEDS: NITROGLYCERIN 0.4 MG SUBL TABLET SL (19:58)
[2018-03-12] MEDS ORDERED: ISOVUE-370 76% 100ML VIAL (Q9967) As Ordered (20:00)
[2018-03-12] MEDS: AZITHROMYCIN INJ 500 MG, VIAL MATE ADAPTER 1 EACH in D5W 250 ML IV (21:45)
[2018-03-12] MEDS: cefTRIAXone SOD 1 GM in D5W MINI-BAG PLUS 50 ML IV (21:45)
[2018-03-13] MEDS: AZITHROMYCIN INJ 500 MG, VIAL MATE ADAPTER 1 EACH in D5W 250 ML IV ×2 (00:45→23:03)
[2018-03-13] MEDS: MORPHINE 4 MG/ML 1ML VIAL/SYRINGE (J2270) IV (01:00)
[2018-03-13 03:20] LABS: CPK CREATINE PHOSPHOKINASE 41 U/L (39-308); MB/CK RELATIVE INDEX 2.93 (< OR =4); TROPONIN I < 0.02 NG/ML (< 0.10)
[2018-03-13] MEDS: ACETAMINOPHEN TAB 650MG DOSE (2X325MG) PO ×2 (05:57→21:58)
[2018-03-13 06:08] LABS: BASO # 0.1 10^3/uL (0.0-0.2); BASO % 0.5 % (0.0-1.0); EOS # 0.1 10^3/uL (0.0-0.50); EOS % 0.7 % (0.0-3.0); HEMATOCRIT 42.5 % (42.0-52.0); HEMOGLOBIN 14.9 g/dl (13.5-17.5); IMMATURE GRANULOCYTE % 0.3 % (0-3.0); LYMPH # 1.1 10^3/uL (1.5-4.5); MEAN CORPUSCULAR HEMOGLOBIN 35.6 pg (27.0-33.0); MEAN CORPUSCULAR HGB CONC 35.1 g/dl (32.0-36.5); MEAN CORPUSCULAR VOLUME 101.7 fl (80.0-96.0); MONO # 1.4 10^3/uL (0.0-0.8); MONO % 12.7 % (0.0-5.0); NEUTROPHILS # 8.1 10^3/uL (1.8-7.7); NEUTROPHILS % 75.8 % (36.0-66.0); PLATELET COUNT, AUTOMATED 259 10^3/uL (150-450); RED BLOOD COUNT 4.18 10^6/uL (4.30-6.10); WHITE BLOOD COUNT 10.7 10^3/uL (4.0-10.0)
[2018-03-13 06:23] LABS: ALBUMIN 2.7 GM/DL (3.2-5.2); ALBUMIN/GLOBULIN RATIO 0.79 (1.00-1.93); ALKALINE PHOSPHATASE 115 U/L (45-117); ALT/SGPT 21 U/L (12-78); ANION GAP 7 MEQ/L (8-16); AST/SGOT 25 U/L (7-37); BILIRUBIN,TOTAL 0.9 MG/DL (0.2-1.0); BLOOD UREA NITROGEN 11 MG/DL (7-18); CALCIUM LEVEL 8.5 MG/DL (8.8-10.2); CARBON DIOXIDE LEVEL 27 MEQ/L (21-32); CHLORIDE LEVEL 102 MEQ/L (98-107); CREATININE FOR GFR 0.44 MG/DL (0.70-1.30); GLOMERULAR FILTRATION RATE > 60.0 (>42); GLUCOSE, FASTING 102 MG/DL (70-100); POTASSIUM SERUM 4.2 MEQ/L (3.5-5.1); SODIUM LEVEL 136 MEQ/L (136-145); TOTAL PROTEIN 6.1 GM/DL (6.4-8.2)
[2018-03-13 06:43] LABS: ABG BASE EXCESS 3.1 (-2.0-2.0); ABG HCO3 27.8 MEQ/L (22.0-26.0); ABG O2 SATURATION 98.9 % (95.0-99.0); ABG PARTIAL PRESSURE CO2 42.3 mmHg (35.0-45.0); ABG PARTIAL PRESSURE O2 129.8 mmHg (75.0-100.0); ABG STANDARD HCO3 27.3 MEQ/L (22.0-26.0); ABG TOTAL CO2 29.1 MEQ/L (23.0-31.0); ABG pH (ARTERIAL) 7.435 UNITS (7.350-7.450)
[2018-03-13] MEDS: LACTOBACILLUS ACIDOPHILUS CAP (BACID) PO ×2 (07:54→17:44)
[2018-03-13] MEDS: PANTOPRAZOLE 40MG TAB (PROTONIX) PO (07:54)
[2018-03-13] MEDS: ENOXAPARIN 40 MG/0.4 ML SYRINGE (J1650) SC (07:54)
[2018-03-13] MEDS: BUDESONIDE 0.5 MG/2 ML INHALATION SUSPENSION INH ×2 (08:15→20:17)
[2018-03-13] MEDS: IPRATROPIUM 0.5MG/ALBUTEROL 2.5MG INH SOL UD 3ML (DUONEB)(J7620) NEB ×4 (08:15→20:17)
[2018-03-13 12:54] LABS: CPK CREATINE PHOSPHOKINASE 40 U/L (39-308); TROPONIN I < 0.02 NG/ML (< 0.10)
[2018-03-13 19:10] LABS: CPK CREATINE PHOSPHOKINASE 47 U/L (39-308); MB/CK RELATIVE INDEX 3.19 (< OR =4); TROPONIN I < 0.02 NG/ML (< 0.10)
[2018-03-13] MEDS: cefTRIAXone SOD 1 GM in D5W MINI-BAG PLUS 50 ML IV (20:55)
[2018-03-13] MEDS ORDERED: SLF 3 ML SYR IV (23:00)
[2018-03-14] MEDS: SLF 3 ML SYR IV ×3 (05:13→21:04)
[2018-03-14 05:55] LABS: BASO # 0.1 10^3/uL (0.0-0.2); BASO % 0.6 % (0.0-1.0); EOS # 0.3 10^3/uL (0.0-0.50); EOS % 3.8 % (0.0-3.0); HEMATOCRIT 44.4 % (42.0-52.0); HEMOGLOBIN 15.1 g/dl (13.5-17.5); IMMATURE GRANULOCYTE % 0.5 % (0-3.0); LYMPH # 0.9 10^3/uL (1.5-4.5); LYMPH % 11.3 % (24.0-44.0); MEAN CORPUSCULAR HEMOGLOBIN 35.8 pg (27.0-33.0); MEAN CORPUSCULAR VOLUME 105.2 fl (80.0-96.0); MONO # 0.8 10^3/uL (0.0-0.8); MONO % 9.8 % (0.0-5.0); NEUTROPHILS # 5.9 10^3/uL (1.8-7.7); PLATELET COUNT, AUTOMATED 243 10^3/uL (150-450); RED BLOOD COUNT 4.22 10^6/uL (4.30-6.10); RED CELL DISTRIBUTION WIDTH 13.2 % (11.5-14.5)
[2018-03-14 06:24] LABS: ALBUMIN 2.5 GM/DL (3.2-5.2); ALBUMIN/GLOBULIN RATIO 0.69 (1.00-1.93); ALKALINE PHOSPHATASE 118 U/L (45-117); ALT/SGPT 22 U/L (12-78); ANION GAP 4 MEQ/L (8-16); AST/SGOT 31 U/L (7-37); BILIRUBIN,TOTAL 0.6 MG/DL (0.2-1.0); BLOOD UREA NITROGEN 14 MG/DL (7-18); CALCIUM LEVEL 8.8 MG/DL (8.8-10.2); CARBON DIOXIDE LEVEL 32 MEQ/L (21-32); CHLORIDE LEVEL 102 MEQ/L (98-107); CREATININE FOR GFR 0.52 MG/DL (0.70-1.30); GLOMERULAR FILTRATION RATE > 60.0 (>42); GLUCOSE, FASTING 96 MG/DL (70-100); POTASSIUM SERUM 4.4 MEQ/L (3.5-5.1); SODIUM LEVEL 138 MEQ/L (136-145); TOTAL PROTEIN 6.1 GM/DL (6.4-8.2)
[2018-03-14] MEDS: BUDESONIDE 0.5 MG/2 ML INHALATION SUSPENSION INH ×2 (07:21→20:05)
[2018-03-14] MEDS: IPRATROPIUM 0.5MG/ALBUTEROL 2.5MG INH SOL UD 3ML (DUONEB)(J7620) NEB ×4 (07:21→20:05)
[2018-03-14] MEDS: PANTOPRAZOLE 40MG TAB (PROTONIX) PO (07:37)
[2018-03-14] MEDS: LACTOBACILLUS ACIDOPHILUS CAP (BACID) PO ×2 (07:37→18:34)
[2018-03-14] MEDS: ENOXAPARIN 40 MG/0.4 ML SYRINGE (J1650) SC (07:38)
[2018-03-14] MEDS: ACETAMINOPHEN TAB 650MG DOSE (2X325MG) PO ×2 (10:38→19:50)
[2018-03-14] MEDS: cefTRIAXone SOD 1 GM in D5W MINI-BAG PLUS 50 ML IV (21:04)
[2018-03-14] MEDS: AZITHROMYCIN INJ 500 MG, VIAL MATE ADAPTER 1 EACH in D5W 250 ML IV (23:05)
[2018-03-15] MEDS: SLF 3 ML SYR IV ×2 (05:14→14:59)
[2018-03-15 07:02] LABS: BASO % 0.4 % (0.0-1.0); EOS # 0.4 10^3/uL (0.0-0.50); EOS % 5.4 % (0.0-3.0); HEMATOCRIT 42.2 % (42.0-52.0); HEMOGLOBIN 14.7 g/dl (13.5-17.5); IMMATURE GRANULOCYTE % 0.5 % (0-3.0); LYMPH % 13.4 % (24.0-44.0); MEAN CORPUSCULAR HEMOGLOBIN 35.9 pg (27.0-33.0); MEAN CORPUSCULAR HGB CONC 34.8 g/dl (32.0-36.5); MEAN CORPUSCULAR VOLUME 103.2 fl (80.0-96.0); MONO # 0.6 10^3/uL (0.0-0.8); MONO % 7.6 % (0.0-5.0); NEUTROPHILS # 5.5 10^3/uL (1.8-7.7); NEUTROPHILS % 72.7 % (36.0-66.0); PLATELET COUNT, AUTOMATED 315 10^3/uL (150-450); RED BLOOD COUNT 4.09 10^6/uL (4.30-6.10); WHITE BLOOD COUNT 7.6 10^3/uL (4.0-10.0)
[2018-03-15 07:05] LABS: ALBUMIN 2.6 GM/DL (3.2-5.2); ALKALINE PHOSPHATASE 115 U/L (45-117); ALT/SGPT 25 U/L (12-78); ANION GAP 4 MEQ/L (8-16); AST/SGOT 33 U/L (7-37); BILIRUBIN,TOTAL 0.4 MG/DL (0.2-1.0); BLOOD UREA NITROGEN 15 MG/DL (7-18); CALCIUM LEVEL 8.7 MG/DL (8.8-10.2); CARBON DIOXIDE LEVEL 32 MEQ/L (21-32); CHLORIDE LEVEL 102 MEQ/L (98-107); CREATININE FOR GFR 0.58 MG/DL (0.70-1.30); GLOMERULAR FILTRATION RATE > 60.0 (>42); GLUCOSE, FASTING 97 MG/DL (70-100); POTASSIUM SERUM 4.3 MEQ/L (3.5-5.1); SODIUM LEVEL 138 MEQ/L (136-145); TOTAL PROTEIN 6.3 GM/DL (6.4-8.2)
[2018-03-15] MEDS: BUDESONIDE 0.5 MG/2 ML INHALATION SUSPENSION INH ×2 (08:00→19:56)
[2018-03-15] MEDS: IPRATROPIUM 0.5MG/ALBUTEROL 2.5MG INH SOL UD 3ML (DUONEB)(J7620) NEB ×4 (08:00→19:56)
[2018-03-15] MEDS: PANTOPRAZOLE 40MG TAB (PROTONIX) PO (08:43)
[2018-03-15] MEDS: LACTOBACILLUS ACIDOPHILUS CAP (BACID) PO ×2 (08:43→18:26)
[2018-03-15] MEDS: ENOXAPARIN 40 MG/0.4 ML SYRINGE (J1650) SC (08:44)
[2018-03-15] MEDS: cefTRIAXone SOD 1 GM in D5W MINI-BAG PLUS 50 ML IV (22:01)
[2018-03-15] MEDS: AZITHROMYCIN INJ 500 MG, VIAL MATE ADAPTER 1 EACH in D5W 250 ML IV (22:48)
[2018-03-16] MEDS: SLF 3 ML SYR IV ×2 (01:01→06:00)
[2018-03-16] MEDS: ACETAMINOPHEN TAB 650MG DOSE (2X325MG) PO (01:04)
[2018-03-16 05:40] LABS: BASO % 0.6 % (0.0-1.0); EOS # 0.4 10^3/uL (0.0-0.50); HEMATOCRIT 44.5 % (42.0-52.0); HEMOGLOBIN 14.7 g/dl (13.5-17.5); IMMATURE GRANULOCYTE % 0.4 % (0-3.0); LYMPH # 1.3 10^3/uL (1.5-4.5); LYMPH % 17.8 % (24.0-44.0); MONO # 0.6 10^3/uL (0.0-0.8); MONO % 8.8 % (0.0-5.0); NEUTROPHILS # 4.7 10^3/uL (1.8-7.7); NEUTROPHILS % 66.4 % (36.0-66.0); PLATELET COUNT, AUTOMATED 320 10^3/uL (150-450); RED BLOOD COUNT 4.32 10^6/uL (4.30-6.10); RED CELL DISTRIBUTION WIDTH 13.2 % (11.5-14.5)
[2018-03-16 05:57] LABS: ALBUMIN 2.8 GM/DL (3.2-5.2); ALBUMIN/GLOBULIN RATIO 0.76 (1.00-1.93); ALKALINE PHOSPHATASE 117 U/L (45-117); ALT/SGPT 28 U/L (12-78); ANION GAP 4 MEQ/L (8-16); AST/SGOT 34 U/L (7-37); BILIRUBIN,TOTAL 0.4 MG/DL (0.2-1.0); BLOOD UREA NITROGEN 15 MG/DL (7-18); CALCIUM LEVEL 8.8 MG/DL (8.8-10.2); CARBON DIOXIDE LEVEL 34 MEQ/L (21-32); CHLORIDE LEVEL 102 MEQ/L (98-107); CREATININE FOR GFR 0.64 MG/DL (0.70-1.30); GLOMERULAR FILTRATION RATE > 60.0 (>42); GLUCOSE, FASTING 95 MG/DL (70-100); POTASSIUM SERUM 4.4 MEQ/L (3.5-5.1); SODIUM LEVEL 140 MEQ/L (136-145); TOTAL PROTEIN 6.5 GM/DL (6.4-8.2)
[2018-03-16] MEDS ORDERED: LevoFLOXacin 500 MG TABLET PO (06:00)
[2018-03-16] MEDS: IPRATROPIUM 0.5MG/ALBUTEROL 2.5MG INH SOL UD 3ML (DUONEB)(J7620) NEB (07:42)
[2018-03-16] MEDS: BUDESONIDE 0.5 MG/2 ML INHALATION SUSPENSION INH (07:42)
[2018-03-16] MEDS: ENOXAPARIN 40 MG/0.4 ML SYRINGE (J1650) SC (09:00)
[2018-03-16] MEDS: PANTOPRAZOLE 40MG TAB (PROTONIX) PO (10:12)
[2018-03-16] MEDS: LACTOBACILLUS ACIDOPHILUS CAP (BACID) PO (10:12)
== END 2018-03-16 12:13 | disposition home or self-care (01) | DRG 178 ==
LOC: M ED INP 03-13 01:42 → M ED 18:38 → M PCU 03-13 02:53 → M MS5PR 03-14 15:51
DX: J15.0 Pneumonia due to Klebsiella pneumoniae (principal); J44.0 Chronic obstructive pulmonary disease with (acute) lower respiratory infection; E78.5 Hyperlipidemia, unspecified; R07.89 Other chest pain; E88.01 Alpha-1-antitrypsin deficiency; Z79.51 Long term (current) use of inhaled steroids

== ENCOUNTER → 2018-03-25 | Outpatient (REF) | payer MEDICARE | LOC: M LAB REF 18:48 | DX: D04.22 Carcinoma in situ of skin of left ear and external auricular canal (principal); L57.0 Actinic keratosis | CPT/HCPCS: 88305 ==

== ENCOUNTER → 2018-04-28 | Outpatient (CLI) | payer MEDICARE | LOC: M RAD 07:46 | DX: J44.9 Chronic obstructive pulmonary disease, unspecified (principal); J84.10 Pulmonary fibrosis, unspecified | CPT/HCPCS: Q9967 ==

== ENCOUNTER → 2018-04-30 | Outpatient (CLI) | payer MEDICARE | LOC: M CARPUL 08:18 | DX: R94.31 Abnormal electrocardiogram [ECG] [EKG] (principal) | CPT/HCPCS: 93306 ==